=== PATIENT | male | born 1985 | race Caucasian/White ===

== ENCOUNTER 2017-12-06 16:10 | Inpatient (IN) | payer MEDICARE, MEDICAID ==
[~2017-12-06 16:10] MED LIST: RISPC50 IM
[2017-12-06] MEDS ORDERED: LORazepam 2 MG TABLET PO PRN (16:30)
[2017-12-06] MEDS ORDERED: HALOPERIDOL 5 MG TABLET PO PRN (16:30)
[2017-12-06] MEDS ORDERED: ZOLPIDEM TARTRATE 10 MG TABLET PO PRN (16:30)
[2017-12-06 16:31] VITALS: BP 115/68
[2017-12-06] MEDS ORDERED: LOPERAMIDE HCL 2 MG CAPSULE PO PRN (21:30)
[2017-12-06] MEDS ORDERED: ACETAMINOPHEN 325 MG TABLET PO PRN (21:30)
[2017-12-06] MEDS ORDERED: CloNIDine HCL 0.1 MG TABLET PO PRN (21:30)
[2017-12-06] MEDS ORDERED: MAGNESIUM HYDROXIDE SUSPENSION 30 ML UDCUP PO PRN (21:30)
[2017-12-06] MEDS ORDERED: BACITRACIN 28.4 GM OINTMENT TP PRN (21:30)
[2017-12-06] MEDS ORDERED: IBUPROFEN 600 MG TABLET PO PRN (21:30)
[2017-12-06] MEDS ORDERED: ALBUTEROL SULFATE HFA 90 MCG/PUFF 8 GM INHALER IH PRN (21:30)
[2017-12-06] MEDS ORDERED: PETROLATUM,WHITE 71 GM JELLY TP PRN (21:30)
[2017-12-06] MEDS ORDERED: MAG HYDROX/AL HYDROX/SIMETH ES 30 ML SUSPENSION UDCUP PO PRN (21:30)
[2017-12-06] MEDS ORDERED: ONDANSETRON HCL 4 MG TABLET PO PRN (21:30)
[2017-12-06] MEDS ORDERED: BENZOCAINE/MENTHOL LOZENGE MM PRN (21:30)
[2017-12-07 06:42] VITALS: BP 100/60
[2017-12-07 08:10] VITALS: BP 101/70
[2017-12-07 08:56] LABS: BASOPHILS % (AUTO) 0.7 % (0.0-2.0); HEMATOCRIT 43.7 % (41-53); HEMOGLOBIN 15.4 g/dL (13.5-17.5); LYMPHOCYTES # (AUTO) 2.5 K/uL (1.0-4.8); LYMPHOCYTES % (AUTO) 50.2 % (22.0-44.0); MEAN CORPUSCULAR HEMOGLOBIN 32.1 pg (26.0-34.0); MEAN CORPUSCULAR HGB CONC 35.3 G/dL (31.0-37.0); MEAN CORPUSCULAR VOLUME 91 fL (80-100); MONOCYTES # (AUTO) 0.7 K/uL (0.1-1.0); NEUTROPHILS # (AUTO) 1.7 K/uL (1.8-7.7); NEUTROPHILS % (AUTO) 33.1 % (40.0-70.0); PLATELET COUNT (AUTO) 275 K/uL (150-450); RED CELL DISTRIBUTION WIDTH 12.5 % (11.5-14.5)
[2017-12-07] MEDS: DOCUSATE SODIUM 100 MG CAPSULE PO SCH (09:07)
[2017-12-07] MEDS: OMEPRAZOLE 20 MG CAPSULE PO SCH (09:07)
[2017-12-07 09:11] LABS: ALANINE AMINOTRANSFERASE 33 U/L (12-78); ALBUMIN 3.7 g/dL (3.4-5.0); ALKALINE PHOSPHATASE 80 U/L (46-116); ANION GAP 5 mmol/L (8-16); ASPARTATE AMINOTRANSFERASE 18 U/L (15-37); BILIRUBIN,TOTAL 0.7 mg/dL (0.1-1.0); CALCIUM, TOTAL 8.9 mg/dL (8.8-10.5); CARBON DIOXIDE 30 mmol/L (22-29); CHLORIDE 105 mmol/L (98-107); CHOL/HDL RATIO 2.8 (4.2-7.3); CHOLESTEROL 111 mg/dL (131-200); CREATININE 0.99 mg/dL (0.60-1.30); FREE T4 (FREE THYROXINE) 1.01 ng/dL (0.76-1.46); GLOMERULAR FILTR. RATE CALC > 60 mL/min (>60); GLUCOSE,RANDOM 87 mg/dL (70-110); HDL CHOLESTEROL 40 mg/dL (40-60); LDL CHOL (CALC.) 63 mg/dL (0-130); SODIUM SERUM 140 mmol/L (136-145); THYROID STIMULATING HORMONE 1.43 uIU/mL (0.36-3.74); TOTAL PROTEIN, SERUM 6.6 g/dL (6.4-8.2); TRIGLYCERIDES 38 mg/dL (15-150); UREA NITROGEN, BLOOD 12 mg/dL (7-18)
[2017-12-07 16:17] VITALS: BP 106/62
[2017-12-08 01:38] VITALS: BP 103/64
[2017-12-08 08:00] VITALS: BP 123/69
[2017-12-08] MEDS: OMEPRAZOLE 20 MG CAPSULE PO SCH (08:52)
[2017-12-08] MEDS: DOCUSATE SODIUM 100 MG CAPSULE PO SCH (08:52)
[2017-12-08 16:10] VITALS: BP 114/71
[2017-12-08] MEDS: BENZTROPINE MESYLATE 1 MG TABLET PO SCH (16:34)
[2017-12-08] MEDS: HALOPERIDOL 10 MG TABLET PO SCH (20:46)
[2017-12-09 06:39] VITALS: BP 106/62
[2017-12-09 08:24] VITALS: BP 112/62
[2017-12-09] MEDS: OMEPRAZOLE 20 MG CAPSULE PO SCH (08:46)
[2017-12-09] MEDS: DOCUSATE SODIUM 100 MG CAPSULE PO SCH (08:46)
[2017-12-09] MEDS: BENZTROPINE MESYLATE 1 MG TABLET PO SCH ×2 (08:46→16:31)
[2017-12-09 16:09] VITALS: BP 105/63
[2017-12-09] MEDS: HALOPERIDOL 10 MG TABLET PO SCH (20:35)
[2017-12-10 06:31] VITALS: BP 102/60
[2017-12-10] MEDS: BENZTROPINE MESYLATE 1 MG TABLET PO SCH (08:02)
[2017-12-10] MEDS: DOCUSATE SODIUM 100 MG CAPSULE PO SCH (08:02)
[2017-12-10] MEDS: OMEPRAZOLE 20 MG CAPSULE PO SCH (08:02)
[2017-12-10 08:48] VITALS: BP 101/63
[2017-12-10] MEDS ORDERED: BENZ1TAB10 PO (09:57)
[2017-12-10] MEDS ORDERED: HALO10 PO (09:58)
[2017-12-10] MEDS ORDERED: DSSL PO (10:11)
[2017-12-10] MEDS ORDERED: OMEP10SU2 PO (10:11)
== END 2017-12-10 11:20 | disposition home or self-care (01) | DRG 885 ==
LOC: B2S 16:26 → B2X 22:25
PROVIDERS: ADMIT Psychiatry & Neurology Psychiatry; ATTEND Psychiatry & Neurology Psychiatry
DX: F20.0 Paranoid schizophrenia (principal); F12.90 Cannabis use, unspecified, uncomplicated; E83.51 Hypocalcemia; G47.00 Insomnia, unspecified; K59.00 Constipation, unspecified; Z72.89 Other problems related to lifestyle; Z71.51 Drug abuse counseling and surveillance of drug abuser; Z71.41 Alcohol abuse counseling and surveillance of alcoholic; Z79.899 Other long term (current) drug therapy; Z82.62 Family history of osteoporosis; Z82.61 Family history of arthritis
CPT/HCPCS: 82306; 83036; 84439; 84443

== ENCOUNTER 2019-08-28 10:38 | Emergency (ER) | payer MEDICARE, OTHER ==
[~2019-08-28] VITALS: Ht 170.2 cm; Wt 59.1 kg
[~2019-08-28 10:38] MED LIST changes: +BENZ1TAB10 PO; +DSSL PO; +HALO10 PO; +OMEP10SU2 PO; -RISPC50 IM
[2019-08-28] MEDS ORDERED: RISP.5 PO (10:44)
[2019-08-28] MEDS ORDERED: BUPR75 PO (10:44)
[2019-08-28 11:16] LABS: BASOPHILS % (AUTO) 0.7 % (0.0-2.0); EOSINOPHILS % (AUTO) 1.4 % (1.0-6.0); HEMATOCRIT 44.1 % (41-53); HEMOGLOBIN 15.3 g/dL (13.5-17.5); LYMPHOCYTES % (AUTO) 17.7 % (22.0-44.0); MEAN CORPUSCULAR HEMOGLOBIN 32.3 pg (26.0-34.0); MEAN CORPUSCULAR HGB CONC 34.7 G/dL (31.0-37.0); MEAN CORPUSCULAR VOLUME 93 fL (80-100); MONOCYTES # (AUTO) 0.4 K/uL (0.1-1.0); MONOCYTES % (AUTO) 7.3 % (2.0-9.0); NEUTROPHILS # (AUTO) 4.3 K/uL (1.8-7.7); NEUTROPHILS % (AUTO) 72.9 % (40.0-70.0); PLATELET COUNT (AUTO) 308 K/uL (150-450); RED BLOOD CELL COUNT(AUTO) 4.75 MIL/uL (4.50-5.90); RED CELL DISTRIBUTION WIDTH 12.8 % (11.5-14.5)
[2019-08-28 11:25] LABS: ANION GAP 9 mmol/L (8-16); CALCIUM, TOTAL 9.4 mg/dL (8.8-10.5); CARBON DIOXIDE 29 mmol/L (22-29); CHLORIDE 104 mmol/L (98-107); CREATININE 0.98 mg/dL (0.60-1.30); GLOMERULAR FILTR. RATE CALC > 60 mL/min (>60); GLUCOSE,RANDOM 77 mg/dL (70-110); POTASSIUM 4.1 mmol/L (3.5-5.1); SODIUM SERUM 142 mmol/L (136-145); UREA NITROGEN, BLOOD 5 mg/dL (7-18)
[2019-08-28 11:30] LABS: ALANINE AMINOTRANSFERASE 41 U/L (12-78); ALBUMIN 4.2 g/dL (3.4-5.0); ALKALINE PHOSPHATASE 87 U/L (46-116); ASPARTATE AMINOTRANSFERASE 24 U/L (15-37); BILIRUBIN,TOTAL 0.7 mg/dL (0.1-1.0); TOTAL PROTEIN, SERUM 7.5 g/dL (6.4-8.2)
[2019-08-28 11:50] LABS: APPEARANCE,URINE CLEAR (CLEAR); BILIRUBIN,URINE NEGATIVE (NEGATIVE); GLUCOSE, URINE (UA) NEGATIVE (NEGATIVE); KETONES,URINE NEGATIVE (NEGATIVE); LEUKOCYTE ESTERASE ,URINE NEGATIVE (NEGATIVE); NITRATE,URINE NEGATIVE (NEGATIVE); OCCULT BLOOD,URINE NEGATIVE (NEGATIVE); PROTEIN,URINE NEGATIVE (NEGATIVE); UROBILINOGEN,URINE 0.2 mg/dL (<=1.0)
[2019-08-28 11:56] LABS: AMPHET/METH SCREEN,URINE NEGATIVE (NEGATIVE); BARBITURATE SCREEN, URINE NEGATIVE (NEGATIVE); BENZODIAZEPINES SCREEN,URINE NEGATIVE (NEGATIVE); CANNABINOID SCREEN,URINE NEGATIVE (NEGATIVE); COCAINE SCREEN,URINE NEGATIVE (NEGATIVE); METHADONE SCREEN, URINE NEGATIVE (NEGATIVE); OPIATE SCREEN,URINE NEGATIVE (NEGATIVE)
[2019-08-28 12:13] LABS: PHENCYCLIDINE SCREEN,URINE NEGATIVE (NEGATIVE)
[2019-08-28] MEDS ORDERED: LORazepam 2 MG/ML VIAL IM ONE (12:15)
[2019-08-28] MEDS ORDERED: HALOPERIDOL LACTATE 5 MG/ML VIAL IM ONE (12:15)
[2019-08-28 14:40] VITALS: BP 128/70
== END 2019-08-28 14:44 | disposition home or self-care (01) ==
LOC: EMS 10:43
DX: R44.0 Auditory hallucinations (principal); M54.5 Low back pain; F17.210 Nicotine dependence, cigarettes, uncomplicated
CPT/HCPCS: 36415; 80053; 80307; 81003; 85025; 96372; 99284; G0480; J1630; J2060

== ENCOUNTER 2019-08-28 16:27 | Inpatient (IN) | payer MEDICARE, MEDICAID ==
[~2019-08-28] VITALS: Ht 170.2 cm; Wt 60.8 kg
[~2019-08-28 16:27] MED LIST changes: +BUPR75 PO; +RISP.5 PO
[2019-08-28] MEDS ORDERED: ZOLPIDEM TARTRATE 10 MG TABLET PO PRN (17:15)
[2019-08-28] MEDS ORDERED: LORazepam 2 MG TABLET PO PRN (17:15)
[2019-08-28] MEDS ORDERED: INFLUENZA VIRUS VACCINE QVS 2019-20 (3YR+)/PF 60 MCG/0.5 ML SYRINGE IM ONE (18:30)
[2019-08-28 19:18] VITALS: BP 112/68
[2019-08-29 05:01] VITALS: BP 121/72
[2019-08-29 08:36] LABS: CHOL/HDL RATIO 2.8 (4.2-7.3)
[2019-08-29 09:02] VITALS: BP 102/61
[2019-08-29 16:09] VITALS: BP 121/63
[2019-08-29] MEDS: BENZTROPINE MESYLATE 1 MG TABLET PO SCH (16:31)
[2019-08-29] MEDS: HALOPERIDOL 10 MG TABLET PO SCH (20:39)
[2019-08-29] MEDS ORDERED: ACETAMINOPHEN 325 MG TABLET PO PRN (23:30)
[2019-08-29] MEDS ORDERED: ONDANSETRON HCL 4 MG TABLET PO PRN (23:30)
[2019-08-29] MEDS ORDERED: LOPERAMIDE HCL 2 MG CAPSULE PO PRN (23:30)
[2019-08-29] MEDS ORDERED: IBUPROFEN 600 MG TABLET PO PRN (23:30)
[2019-08-29] MEDS ORDERED: CloNIDine HCL 0.1 MG TABLET PO PRN (23:30)
[2019-08-29] MEDS ORDERED: BENZOCAINE/MENTHOL LOZENGE MM PRN (23:30)
[2019-08-29] MEDS ORDERED: MAG HYDROX/AL HYDROX/SIMETH ES 30 ML SUSPENSION UDCUP PO PRN (23:30)
[2019-08-29] MEDS ORDERED: BACITRACIN 28.4 GM OINTMENT TP PRN (23:30)
[2019-08-29] MEDS ORDERED: ALBUTEROL SULFATE HFA 90 MCG/PUFF 8 GM INHALER IH PRN (23:30)
[2019-08-29] MEDS ORDERED: MAGNESIUM HYDROXIDE SUSPENSION 30 ML UDCUP PO PRN (23:30)
[2019-08-29] MEDS ORDERED: PETROLATUM,WHITE 28 GM JELLY TP PRN (23:30)
[2019-08-30 05:14] VITALS: BP 107/68
[2019-08-30 08:08] VITALS: BP 159/80
[2019-08-30] MEDS: BuPROPion HCL XL 150 MG ER TABLET PO SCH (08:26)
[2019-08-30] MEDS: DOCUSATE SODIUM 100 MG CAPSULE PO SCH (08:26)
[2019-08-30] MEDS: BENZTROPINE MESYLATE 1 MG TABLET PO SCH ×2 (08:26→16:35)
[2019-08-30] MEDS: OMEPRAZOLE 20 MG CAPSULE PO SCH (08:30)
[2019-08-30 08:36] VITALS: BP 109/58
[2019-08-30 16:08] VITALS: BP 111/60
[2019-08-30] MEDS: HALOPERIDOL 10 MG TABLET PO SCH (20:33)
[2019-08-31 06:08] VITALS: BP 93/52
[2019-08-31 08:29] VITALS: BP 111/60
[2019-08-31] MEDS: BENZTROPINE MESYLATE 1 MG TABLET PO SCH ×2 (08:36→17:18)
[2019-08-31] MEDS: BuPROPion HCL XL 150 MG ER TABLET PO SCH (08:36)
[2019-08-31] MEDS: OMEPRAZOLE 20 MG CAPSULE PO SCH (08:36)
[2019-08-31] MEDS: DOCUSATE SODIUM 100 MG CAPSULE PO SCH (08:36)
[2019-08-31 16:08] VITALS: BP 111/69
[2019-08-31] MEDS: HALOPERIDOL 10 MG TABLET PO SCH (22:21)
[2019-09-01 00:23] VITALS: BP 100/48
[2019-09-01] MEDS: OMEPRAZOLE 20 MG CAPSULE PO SCH (08:23)
[2019-09-01] MEDS: BuPROPion HCL XL 150 MG ER TABLET PO SCH (08:23)
[2019-09-01] MEDS: DOCUSATE SODIUM 100 MG CAPSULE PO SCH (08:23)
[2019-09-01] MEDS: BENZTROPINE MESYLATE 1 MG TABLET PO SCH ×2 (08:23→16:30)
[2019-09-01 08:38] VITALS: BP 100/55
[2019-09-01 17:07] VITALS: BP 94/58
[2019-09-01] MEDS: HALOPERIDOL 10 MG TABLET PO SCH (20:19)
[2019-09-02 00:26] VITALS: BP 102/62
[2019-09-02 08:46] VITALS: BP 114/64
[2019-09-02] MEDS: DOCUSATE SODIUM 100 MG CAPSULE PO SCH (10:24)
[2019-09-02] MEDS: BuPROPion HCL XL 150 MG ER TABLET PO SCH (10:24)
[2019-09-02] MEDS: BENZTROPINE MESYLATE 1 MG TABLET PO SCH ×2 (10:24→17:24)
[2019-09-02] MEDS: OMEPRAZOLE 20 MG CAPSULE PO SCH (10:24)
[2019-09-02 16:00] VITALS: BP 11/76
[2019-09-02] MEDS ORDERED: GuaiFENesin [SUGAR-FREE] 200 MG/10 ML SOLUTION UDCUP PO PRN (20:30)
[2019-09-02] MEDS: HALOPERIDOL 10 MG TABLET PO SCH (20:32)
[2019-09-03 06:48] VITALS: BP 111/72
[2019-09-03 08:15] VITALS: BP 112/60
[2019-09-03] MEDS: OMEPRAZOLE 20 MG CAPSULE PO SCH (08:37)
[2019-09-03] MEDS: BENZTROPINE MESYLATE 1 MG TABLET PO SCH (08:37)
[2019-09-03] MEDS: DOCUSATE SODIUM 100 MG CAPSULE PO SCH (08:37)
[2019-09-03] MEDS: BuPROPion HCL XL 150 MG ER TABLET PO SCH (08:37)
[2019-09-03] MEDS ORDERED: DOCU-275 PO (08:41)
[2019-09-03] MEDS ORDERED: HALO10 PO (08:41)
[2019-09-03] MEDS ORDERED: BUPR-93 PO (08:41)
[2019-09-03] MEDS ORDERED: OMEP20 PO (08:41)
[2019-09-04] MEDS ORDERED: RisperiDONE MICROSPHERES 50 MG/2 ML SYRINGE IM SCH (09:00)
== END 2019-09-03 12:15 | disposition home or self-care (01) | DRG 885 ==
LOC: B2X 17:07
PROVIDERS: ADMIT Psychiatry & Neurology Psychiatry; ATTEND Psychiatry & Neurology Psychiatry
DX: F25.9 Schizoaffective disorder, unspecified (principal); K59.00 Constipation, unspecified; G47.00 Insomnia, unspecified; F12.90 Cannabis use, unspecified, uncomplicated
CPT/HCPCS: G0480; J2794

== ENCOUNTER 2019-10-29 15:21 | Inpatient (IN) | payer MEDICARE, MEDICAID, SELFPAY ==
[~2019-10-29] VITALS: Ht 170.2 cm; Wt 59.0 kg
[~2019-10-29 15:21] MED LIST changes: +BUPR-93 PO; -BUPR75 PO; +DOCU-275 PO; -DSSL PO; -OMEP10SU2 PO; +OMEP20 PO; -RISP.5 PO
[2019-10-29] MEDS ORDERED: LORazepam 2 MG TABLET PO PRN (16:00)
[2019-10-29] MEDS ORDERED: HALOPERIDOL 5 MG TABLET PO PRN (16:00)
[2019-10-29] MEDS ORDERED: ZOLPIDEM TARTRATE 10 MG TABLET PO PRN (16:00)
[2019-10-29 16:48] VITALS: BP 115/60
[2019-10-29] MEDS ORDERED: RISPC50 IM (17:17)
[2019-10-29 17:19] VITALS: BP 116/71
[2019-10-30 04:39] VITALS: BP 114/65
[2019-10-30 07:47] LABS: BASOPHILS % (AUTO) 1.1 % (0.0-2.0); EOSINOPHILS % (AUTO) 2.3 % (1.0-6.0); HEMATOCRIT 42.9 % (41-53); HEMOGLOBIN 15.1 g/dL (13.5-17.5); LYMPHOCYTES # (AUTO) 1.6 K/uL (1.0-4.8); MEAN CORPUSCULAR HEMOGLOBIN 32.5 pg (26.0-34.0); MEAN CORPUSCULAR HGB CONC 35.2 G/dL (31.0-37.0); MEAN CORPUSCULAR VOLUME 92 fL (80-100); MONOCYTES # (AUTO) 0.3 K/uL (0.1-1.0); MONOCYTES % (AUTO) 8.9 % (2.0-9.0); NEUTROPHILS # (AUTO) 1.6 K/uL (1.8-7.7); NEUTROPHILS % (AUTO) 43.7 % (40.0-70.0); PLATELET COUNT (AUTO) 293 K/uL (150-450); RED BLOOD CELL COUNT(AUTO) 4.65 MIL/uL (4.50-5.90); RED CELL DISTRIBUTION WIDTH 12.4 % (11.5-14.5)
[2019-10-30 08:09] LABS: ALANINE AMINOTRANSFERASE 19 U/L (12-78); ALBUMIN 3.8 g/dL (3.4-5.0); ALKALINE PHOSPHATASE 76 U/L (46-116); ANION GAP 7 mmol/L (8-16); ASPARTATE AMINOTRANSFERASE 13 U/L (15-37); CALCIUM, TOTAL 8.7 mg/dL (8.8-10.5); CARBON DIOXIDE 30 mmol/L (22-29); CHLORIDE 105 mmol/L (98-107); CHOL/HDL RATIO 2.5 (4.2-7.3); CHOLESTEROL 101 mg/dL (131-200); CREATININE 0.97 mg/dL (0.60-1.30); GLOMERULAR FILTR. RATE CALC > 60 mL/min (>60); GLUCOSE,RANDOM 84 mg/dL (70-110); HDL CHOLESTEROL 40 mg/dL (40-60); LDL CHOL (CALC.) 55 mg/dL (0-130); POTASSIUM 3.9 mmol/L (3.5-5.1); SODIUM SERUM 142 mmol/L (136-145); TRIGLYCERIDES 29 mg/dL (15-150); UREA NITROGEN, BLOOD 8 mg/dL (7-18)
[2019-10-30 08:41] VITALS: BP 104/60
[2019-10-30] MEDS ORDERED: OMEPRAZOLE 20 MG CAPSULE PO PRN (09:00)
[2019-10-30] MEDS ORDERED: ACETAMINOPHEN 325 MG TABLET PO PRN (09:00)
[2019-10-30] MEDS ORDERED: DOCUSATE SODIUM 100 MG CAPSULE PO PRN (09:00)
[2019-10-30] MEDS ORDERED: PETROLATUM,WHITE 28 GM JELLY TP PRN (09:00)
[2019-10-30] MEDS ORDERED: CloNIDine HCL 0.1 MG TABLET PO PRN (09:00)
[2019-10-30] MEDS ORDERED: BACITRACIN 28.4 GM OINTMENT TP PRN (09:00)
[2019-10-30] MEDS ORDERED: ALBUTEROL SULFATE HFA 90 MCG/PUFF 8 GM INHALER IH PRN (09:00)
[2019-10-30] MEDS ORDERED: MAG HYDROX/AL HYDROX/SIMETH ES 30 ML SUSPENSION UDCUP PO PRN (09:00)
[2019-10-30] MEDS ORDERED: BENZOCAINE/MENTHOL LOZENGE MM PRN (09:00)
[2019-10-30] MEDS ORDERED: MAGNESIUM HYDROXIDE SUSPENSION 30 ML UDCUP PO PRN (09:00)
[2019-10-30] MEDS ORDERED: ONDANSETRON HCL 4 MG TABLET PO PRN (09:00)
[2019-10-30] MEDS ORDERED: IBUPROFEN 600 MG TABLET PO PRN (09:00)
[2019-10-30] MEDS ORDERED: LOPERAMIDE HCL 2 MG CAPSULE PO PRN (09:00)
[2019-10-30 16:26] VITALS: BP 108/64
[2019-10-31 00:07] VITALS: BP 110/70
[2019-10-31 08:26] VITALS: BP 106/63
[2019-10-31] MEDS: BuPROPion HCL XL 150 MG ER TABLET PO SCH (08:30)
[2019-10-31] MEDS ORDERED: RisperiDONE MICROSPHERES 50 MG/2 ML SYRINGE IM SCH (09:00)
[2019-10-31 16:08] VITALS: BP 101/63
[2019-11-01 00:07] VITALS: BP 100/72
[2019-11-01 08:17] VITALS: BP 113/65
[2019-11-01] MEDS: BuPROPion HCL XL 150 MG ER TABLET PO SCH (08:28)
[2019-11-01 16:43] VITALS: BP 102/63
[2019-11-02 00:34] VITALS: BP 102/70
[2019-11-02 08:09] VITALS: BP 105/62
[2019-11-02] MEDS: BuPROPion HCL XL 150 MG ER TABLET PO SCH (08:15)
== END 2019-11-02 11:20 | disposition home or self-care (01) | DRG 885 ==
LOC: B2X 16:30 → UNDOADMIN 16:39 → UNDODISIN 11-02 11:20
PROVIDERS: ADMIT Psychiatry & Neurology Psychiatry; ATTEND Psychiatry & Neurology Psychiatry
DX: F20.0 Paranoid schizophrenia (principal); F41.9 Anxiety disorder, unspecified; G47.00 Insomnia, unspecified; K59.00 Constipation, unspecified; F12.90 Cannabis use, unspecified, uncomplicated; Z72.89 Other problems related to lifestyle; Z79.899 Other long term (current) drug therapy; Z79.891 Long term (current) use of opiate analgesic; Z79.2 Long term (current) use of antibiotics
CPT/HCPCS: 84439; 84443; J2794

== ENCOUNTER 2019-12-19 13:11 | Inpatient (IN) | payer MEDICARE, MEDICAID ==
[~2019-12-19] VITALS: Ht 170.2 cm; Wt 57.3 kg
[~2019-12-19 13:11] MED LIST changes: -BENZ1TAB10 PO; -DOCU-275 PO; -HALO10 PO; -OMEP20 PO; +RISPC50 IM
[2019-12-19] MEDS ORDERED: ZOLPIDEM TARTRATE 10 MG TABLET PO PRN (13:30)
[2019-12-19 13:35] VITALS: BP 120/78
[2019-12-19] MEDS ORDERED: BENZ1TAB10 PO (14:40)
[2019-12-19 16:39] VITALS: BP 113/69
[2019-12-19] MEDS ORDERED: RisperiDONE MICROSPHERES 50 MG/2 ML SYRINGE IM SCH (21:00)
[2019-12-20 05:39] VITALS: BP 110/71
[2019-12-20 07:40] LABS: BASOPHILS % (AUTO) 0.8 % (0.0-2.0); EOSINOPHILS % (AUTO) 3.9 % (1.0-6.0); HEMATOCRIT 41.2 % (41-53); HEMOGLOBIN 14.6 g/dL (13.5-17.5); LYMPHOCYTES # (AUTO) 1.2 K/uL (1.0-4.8); LYMPHOCYTES % (AUTO) 31.6 % (22.0-44.0); MEAN CORPUSCULAR HEMOGLOBIN 32.6 pg (26.0-34.0); MEAN CORPUSCULAR HGB CONC 35.4 G/dL (31.0-37.0); MEAN CORPUSCULAR VOLUME 92 fL (80-100); MONOCYTES # (AUTO) 0.5 K/uL (0.1-1.0); NEUTROPHILS % (AUTO) 51.7 % (40.0-70.0); PLATELET COUNT (AUTO) 280 K/uL (150-450); RED BLOOD CELL COUNT(AUTO) 4.48 MIL/uL (4.50-5.90); RED CELL DISTRIBUTION WIDTH 12.7 % (11.5-14.5)
[2019-12-20 08:10] LABS: ALANINE AMINOTRANSFERASE 36 U/L (12-78); ALBUMIN 3.6 g/dL (3.4-5.0); ALKALINE PHOSPHATASE 72 U/L (46-116); ANION GAP 6 mmol/L (8-16); ASPARTATE AMINOTRANSFERASE 29 U/L (15-37); BILIRUBIN,TOTAL 0.9 mg/dL (0.1-1.0); CARBON DIOXIDE 30 mmol/L (22-29); CHLORIDE 102 mmol/L (98-107); CHOL/HDL RATIO 2.3 (4.2-7.3); CHOLESTEROL 105 mg/dL (131-200); CREATININE 0.93 mg/dL (0.60-1.30); FREE T4 (FREE THYROXINE) 1.45 ng/dL (0.76-1.46); GLOMERULAR FILTR. RATE CALC > 60 mL/min (>60); GLUCOSE,RANDOM 88 mg/dL (70-110); HDL CHOLESTEROL 45 mg/dL (40-60); LDL CHOL (CALC.) 53 mg/dL (0-130); POTASSIUM 3.4 mmol/L (3.5-5.1); SODIUM SERUM 138 mmol/L (136-145); THYROID STIMULATING HORMONE 1.36 uIU/mL (0.36-3.74); TOTAL PROTEIN, SERUM 7.4 g/dL (6.4-8.2); TRIGLYCERIDES 33 mg/dL (15-150); UREA NITROGEN, BLOOD 8 mg/dL (7-18)
[2019-12-20 08:24] VITALS: BP 121/72
[2019-12-20 16:34] VITALS: BP 103/61
[2019-12-20] MEDS ORDERED: POTASSIUM CHLORIDE 20 MEQ ER TABLET PO ONE (17:15)
[2019-12-21 07:14] VITALS: BP 107/66
[2019-12-21 08:54] VITALS: BP 105/66
[2019-12-21] MEDS ORDERED: HALOPERIDOL LACTATE 5 MG/ML VIAL ONE (10:23)
[2019-12-21] MEDS ORDERED: DiphenhydrAMINE HCL 50 MG/ML VIAL ONE (10:23)
[2019-12-21] MEDS ORDERED: LORazepam 2 MG/ML VIAL ONE (10:23)
[2019-12-21] MEDS ORDERED: DiphenhydrAMINE HCL 50 MG/ML VIAL IM ONE (10:30)
[2019-12-21] MEDS ORDERED: LORazepam 2 MG/ML VIAL IM ONE (10:30)
[2019-12-21] MEDS ORDERED: HALOPERIDOL LACTATE 5 MG/ML VIAL IM ONE (10:30)
[2019-12-21 16:04] VITALS: BP 110/63
[2019-12-22 04:15] VITALS: BP 118/70
[2019-12-22 08:07] VITALS: BP 109/59
[2019-12-22] MEDS: LORazepam 2 MG TABLET PO PRN (14:12)
[2019-12-22 16:03] VITALS: BP 103/70
[2019-12-23 01:44] VITALS: BP 114/71
[2019-12-23 08:16] VITALS: BP 127/71
[2019-12-23] MEDS: HALOPERIDOL 5 MG TABLET PO PRN (15:57)
[2019-12-23] MEDS: LORazepam 2 MG TABLET PO PRN (15:58)
[2019-12-23 16:07] VITALS: BP 119/71
[2019-12-24 01:51] VITALS: BP 126/76
[2019-12-24 08:02] VITALS: BP 106/52
[2019-12-24] MEDS ORDERED: IBUPROFEN 600 MG TABLET PO PRN (09:30)
[2019-12-24] MEDS: LORazepam 2 MG TABLET PO PRN ×2 (09:49→16:08)
[2019-12-24] MEDS: HALOPERIDOL 5 MG TABLET PO PRN ×2 (09:49→16:08)
[2019-12-24 16:04] VITALS: BP 116/70
[2019-12-25 06:25] VITALS: BP 110/62
[2019-12-25 08:05] VITALS: BP 110/72
[2019-12-25 16:02] VITALS: BP 114/68
[2019-12-25] MEDS: HALOPERIDOL 5 MG TABLET PO PRN (16:09)
[2019-12-25] MEDS: LORazepam 2 MG TABLET PO PRN (16:09)
[2019-12-26 02:18] VITALS: BP 109/65
[2019-12-26 08:07] VITALS: BP 117/73
[2019-12-26] MEDS ORDERED: MAG HYDROX/AL HYDROX/SIMETH ES 30 ML SUSPENSION UDCUP PO PRN (08:15)
[2019-12-26] MEDS ORDERED: ONDANSETRON HCL 4 MG TABLET PO PRN (08:15)
[2019-12-26] MEDS ORDERED: BENZOCAINE/MENTHOL LOZENGE MM PRN (08:15)
[2019-12-26] MEDS ORDERED: PETROLATUM,WHITE 28 GM JELLY TP PRN (08:15)
[2019-12-26] MEDS ORDERED: MAGNESIUM HYDROXIDE SUSPENSION 30 ML UDCUP PO PRN (08:15)
[2019-12-26] MEDS ORDERED: ALBUTEROL SULFATE HFA 90 MCG/PUFF 8 GM INHALER IH PRN (08:15)
[2019-12-26] MEDS ORDERED: ACETAMINOPHEN 325 MG TABLET PO PRN (08:15)
[2019-12-26] MEDS ORDERED: LOPERAMIDE HCL 2 MG CAPSULE PO PRN (08:15)
[2019-12-26] MEDS ORDERED: BACITRACIN 28.4 GM OINTMENT TP PRN (08:15)
[2019-12-26] MEDS ORDERED: CloNIDine HCL 0.1 MG TABLET PO PRN (08:15)
[2019-12-26 08:47] LABS: ANION GAP 4 mmol/L (8-16); CALCIUM, TOTAL 9.3 mg/dL (8.8-10.5); CARBON DIOXIDE 33 mmol/L (22-29); CHLORIDE 102 mmol/L (98-107); GLOMERULAR FILTR. RATE CALC > 60 mL/min (>60); GLUCOSE,RANDOM 95 mg/dL (70-110); POTASSIUM 4.2 mmol/L (3.5-5.1); SODIUM SERUM 139 mmol/L (136-145); UREA NITROGEN, BLOOD 10 mg/dL (7-18)
[2019-12-26] MEDS ORDERED: OMEPRAZOLE 20 MG CAPSULE PO SCH (09:00)
[2019-12-26] MEDS ORDERED: DOCUSATE SODIUM 100 MG CAPSULE PO SCH (09:00)
== END 2019-12-26 13:15 | disposition home or self-care (01) | DRG 885 ==
LOC: B2X 14:09 → B3A 12-21 10:45
PROVIDERS: ADMIT Psychiatry & Neurology Psychiatry; ATTEND Psychiatry & Neurology Psychiatry
DX: F20.0 Paranoid schizophrenia (principal); F12.90 Cannabis use, unspecified, uncomplicated; F41.9 Anxiety disorder, unspecified; G47.00 Insomnia, unspecified; K59.00 Constipation, unspecified; E87.6 Hypokalemia; F19.10 Other psychoactive substance abuse, uncomplicated; Z72.0 Tobacco use; Z79.899 Other long term (current) drug therapy; Z71.51 Drug abuse counseling and surveillance of drug abuser; Z71.6 Tobacco abuse counseling
CPT/HCPCS: 84132; 84439; 84443; J1200; J1630; J2060; J2794

== ENCOUNTER 2020-03-08 13:14 | Inpatient (IN) | payer MEDICARE, MEDICAID ==
[~2020-03-08] VITALS: Ht 170.2 cm; Wt 61.2 kg
[~2020-03-08 13:14] MED LIST changes: +BENZ1TAB10 PO; -BUPR-93 PO; +BUPR100T5 PO; +HALO10 PO; -RISPC50 IM
[2020-03-08] MEDS ORDERED: ARIP2 PO (17:17)
[2020-03-08] MEDS ORDERED: BUPR150SR PO (20:37)
[2020-03-08] MEDS ORDERED: HALOPERIDOL 5 MG TABLET PO PRN (20:45)
[2020-03-08] MEDS ORDERED: ZOLPIDEM TARTRATE 10 MG TABLET PO PRN (20:45)
[2020-03-08] MEDS ORDERED: LORazepam 2 MG TABLET PO PRN (20:45)
[2020-03-08 21:27] VITALS: BP 136/77
[2020-03-08] MEDS ORDERED: INFLUENZA VIRUS VACCINE QVS 2020-21 (6MO+)/PF 60 MCG/0.5 ML SYRINGE IM ONE (22:45)
[2020-03-08] MEDS: QUEtiapine FUMARATE 25 MG TABLET PO SCH (23:00)
[2020-03-09 07:37] LABS: BASOPHILS % (AUTO) 1.3 % (0.0-2.0); EOSINOPHILS % (AUTO) 3.2 % (1.0-6.0); HEMATOCRIT 42.9 % (41-53); HEMOGLOBIN 14.9 g/dL (13.5-17.5); LYMPHOCYTES # (AUTO) 1.5 K/uL (1.0-4.8); LYMPHOCYTES % (AUTO) 36.2 % (22.0-44.0); MEAN CORPUSCULAR HEMOGLOBIN 32.1 pg (26.0-34.0); MEAN CORPUSCULAR HGB CONC 34.6 G/dL (31.0-37.0); MEAN CORPUSCULAR VOLUME 93 fL (80-100); MONOCYTES # (AUTO) 0.4 K/uL (0.1-1.0); MONOCYTES % (AUTO) 9.2 % (2.0-9.0); NEUTROPHILS # (AUTO) 2.1 K/uL (1.8-7.7); NEUTROPHILS % (AUTO) 50.1 % (40.0-70.0); PLATELET COUNT (AUTO) 313 K/uL (150-450); RED BLOOD CELL COUNT(AUTO) 4.62 MIL/uL (4.50-5.90); RED CELL DISTRIBUTION WIDTH 12.6 % (11.5-14.5)
[2020-03-09 07:57] LABS: ALANINE AMINOTRANSFERASE 117 U/L (12-78); ALBUMIN 3.5 g/dL (3.4-5.0); ALKALINE PHOSPHATASE 54 U/L (46-116); ANION GAP 8 mmol/L (8-16); ASPARTATE AMINOTRANSFERASE 190 U/L (15-37); BILIRUBIN,TOTAL 0.7 mg/dL (0.1-1.0); CARBON DIOXIDE 27 mmol/L (22-29); CHLORIDE 107 mmol/L (98-107); CHOL/HDL RATIO 2.6 (4.2-7.3); CHOLESTEROL 99 mg/dL (131-200); CREATININE 0.81 mg/dL (0.60-1.30); FREE T4 (FREE THYROXINE) 1.07 ng/dL (0.76-1.46); GLOMERULAR FILTR. RATE CALC > 60 mL/min (>60); GLUCOSE,RANDOM 87 mg/dL (70-110); HDL CHOLESTEROL 38 mg/dL (40-60); LDL CHOL (CALC.) 51 mg/dL (0-130); POTASSIUM 3.8 mmol/L (3.5-5.1); SODIUM SERUM 142 mmol/L (136-145); THYROID STIMULATING HORMONE 0.46 uIU/mL (0.36-3.74); TOTAL PROTEIN, SERUM 6.3 g/dL (6.4-8.2); TRIGLYCERIDES 50 mg/dL (15-150); UREA NITROGEN, BLOOD 8 mg/dL (7-18)
[2020-03-09] MEDS: BENZTROPINE MESYLATE 1 MG TABLET PO SCH ×2 (08:28→16:27)
[2020-03-09] MEDS: HALOPERIDOL 5 MG TABLET PO SCH ×2 (08:29→16:27)
[2020-03-09] MEDS ORDERED: IBUPROFEN 400 MG TABLET PO PRN (08:30)
[2020-03-09] MEDS ORDERED: DOCUSATE SODIUM 100 MG CAPSULE PO PRN (08:30)
[2020-03-09] MEDS ORDERED: PETROLATUM,WHITE 28 GM JELLY TP PRN (08:30)
[2020-03-09] MEDS ORDERED: GuaiFENesin/D-METHORPHAN [SUGAR-FREE] 200-20MG/10 ML SYRUP UDCUP PO PRN (08:30)
[2020-03-09] MEDS ORDERED: NICOTINE 14 MG/24 HOUR PATCH TD PRN (08:30)
[2020-03-09] MEDS ORDERED: ACETAMINOPHEN 325 MG TABLET PO PRN (08:30)
[2020-03-09] MEDS ORDERED: MAGNESIUM HYDROXIDE SUSPENSION 30 ML UDCUP PO PRN (08:30)
[2020-03-09] MEDS ORDERED: ALBUTEROL SULFATE HFA 90 MCG/PUFF 8 GM INHALER IH PRN (08:30)
[2020-03-09] MEDS ORDERED: LOPERAMIDE HCL 2 MG CAPSULE PO PRN (08:30)
[2020-03-09] MEDS ORDERED: CloNIDine HCL 0.1 MG TABLET PO PRN (08:30)
[2020-03-09] MEDS ORDERED: MAG HYDROX/AL HYDROX/SIMETH ES 30 ML SUSPENSION UDCUP PO PRN (08:30)
[2020-03-09] MEDS ORDERED: ONDANSETRON HCL 4 MG TABLET PO PRN (08:30)
[2020-03-09 08:36] VITALS: BP 106/62
[2020-03-09 16:48] VITALS: BP 107/62
[2020-03-09] MEDS: QUEtiapine FUMARATE 25 MG TABLET PO SCH (20:33)
[2020-03-10 06:26] VITALS: BP 100/60
[2020-03-10] MEDS: HALOPERIDOL 5 MG TABLET PO SCH ×2 (08:12→17:13)
[2020-03-10] MEDS: BENZTROPINE MESYLATE 1 MG TABLET PO SCH ×2 (08:12→17:13)
[2020-03-10 08:29] VITALS: BP 117/75
[2020-03-10 16:19] VITALS: BP 105/64
[2020-03-10] MEDS: QUEtiapine FUMARATE 25 MG TABLET PO SCH (21:00)
[2020-03-11 04:31] VITALS: BP 110/64
[2020-03-11 08:26] VITALS: BP 100/60
[2020-03-11] MEDS: BENZTROPINE MESYLATE 1 MG TABLET PO SCH ×2 (08:33→16:57)
[2020-03-11] MEDS: HALOPERIDOL 5 MG TABLET PO SCH ×2 (08:35→16:57)
[2020-03-11 16:35] VITALS: BP 100/63
[2020-03-11] MEDS: QUEtiapine FUMARATE 25 MG TABLET PO SCH (20:08)
[2020-03-12 05:37] VITALS: BP 110/68
[2020-03-12 08:05] VITALS: BP 106/67
[2020-03-12] MEDS: BENZTROPINE MESYLATE 1 MG TABLET PO SCH ×2 (09:10→16:32)
[2020-03-12] MEDS: HALOPERIDOL 5 MG TABLET PO SCH ×2 (09:10→16:32)
[2020-03-12 16:17] VITALS: BP 99/61
[2020-03-12] MEDS: QUEtiapine FUMARATE 25 MG TABLET PO SCH (20:36)
[2020-03-13 00:16] VITALS: BP 101/62
[2020-03-13 08:38] VITALS: BP 100/60
[2020-03-13] MEDS: HALOPERIDOL 5 MG TABLET PO SCH ×2 (08:55→16:18)
[2020-03-13] MEDS: BENZTROPINE MESYLATE 1 MG TABLET PO SCH ×2 (08:55→16:18)
[2020-03-13 16:22] VITALS: BP 101/65
[2020-03-13] MEDS: QUEtiapine FUMARATE 25 MG TABLET PO SCH (20:43)
[2020-03-14 04:41] VITALS: BP 110/68
[2020-03-14] MEDS ORDERED: HALO5TAB23 PO (07:35)
[2020-03-14] MEDS ORDERED: QUET25TA PO (07:36)
[2020-03-14 08:09] VITALS: BP 107/56
[2020-03-14] MEDS: HALOPERIDOL 5 MG TABLET PO SCH (08:30)
[2020-03-14] MEDS: BENZTROPINE MESYLATE 1 MG TABLET PO SCH (08:30)
== END 2020-03-14 10:45 | disposition home or self-care (01) | DRG 885 ==
LOC: B2X 21:58
PROVIDERS: ADMIT Psychiatry & Neurology Psychiatry; ATTEND Psychiatry & Neurology Psychiatry
DX: F20.0 Paranoid schizophrenia (principal); D72.819 Decreased white blood cell count, unspecified; F10.10 Alcohol abuse, uncomplicated; R74.01 Elevation of levels of liver transaminase levels; F19.10 Other psychoactive substance abuse, uncomplicated; F99 Mental disorder, not otherwise specified; Z23 Encounter for immunization; Z79.899 Other long term (current) drug therapy
CPT/HCPCS: 84436; 84439; 84443; 90686

== ENCOUNTER 2020-03-08 15:38 | Emergency (ER) | payer MEDICARE, OTHER ==
[~2020-03-08] VITALS: Ht 170.2 cm; Wt 61.4 kg
[2020-03-08] MEDS ORDERED: ARIP2 PO (17:17)
[2020-03-08 17:27] LABS: COVID AG,FIA SOURCE NASOPHARYNGEAL
[2020-03-08] MEDS ORDERED: BUPR150SR PO (20:37)
[2020-03-08 21:24] VITALS: BP 113/68
== END 2020-03-08 20:02 | disposition home or self-care (01) ==
LOC: EMS 15:38
DX: F20.9 Schizophrenia, unspecified (principal); F17.210 Nicotine dependence, cigarettes, uncomplicated; Z20.828 Contact with and (suspected) exposure to other viral communicable diseases
CPT/HCPCS: 87426

== ENCOUNTER 2021-08-08 15:03 | Inpatient (IN) | payer MEDICARE, MEDICAID ==
[~2021-08-08] VITALS: Ht 170.2 cm; Wt 56.9 kg
[~2021-08-08 15:03] MED LIST changes: -BUPR100T5 PO; -HALO10 PO; +HALO5TAB23 PO; +QUET25TA PO
[2021-08-08] MEDS ORDERED: HALOPERIDOL 5 MG TABLET PO PRN (15:45)
[2021-08-08] MEDS ORDERED: LORazepam 2 MG TABLET PO PRN (15:45)
[2021-08-08] MEDS ORDERED: ZOLPIDEM TARTRATE 10 MG TABLET PO PRN (15:45)
[2021-08-08 15:51] LABS: GLUCOMETER DEV NAME(LOC) POC.BV
[2021-08-08 18:23] VITALS: BP 104/71
[2021-08-09 06:27] VITALS: BP 100/50
[2021-08-09 07:46] LABS: EOSINOPHILS % (AUTO) 3.4 % (1.0-6.0); HEMOGLOBIN 13.4 g/dL (13.5-17.5); LYMPHOCYTES # (AUTO) 1.6 K/uL (1.0-4.8); LYMPHOCYTES % (AUTO) 49.8 % (22.0-44.0); MEAN CORPUSCULAR HGB CONC 35.3 G/dL (31.0-37.0); MEAN CORPUSCULAR VOLUME 91 fL (80-100); MONOCYTES # (AUTO) 0.3 K/uL (0.1-1.0); NEUTROPHILS # (AUTO) 1.1 K/uL (1.8-7.7); NEUTROPHILS % (AUTO) 35.8 % (40.0-70.0); PLATELET COUNT (AUTO) 264 K/uL (150-450); RED BLOOD CELL COUNT(AUTO) 4.19 MIL/uL (4.50-5.90); RED CELL DISTRIBUTION WIDTH 12.8 % (11.5-14.5)
[2021-08-09 07:53] LABS: HEMOGLOBIN A1C 5.1 % (3.8-5.6)
[2021-08-09] MEDS ORDERED: ALBUTEROL SULFATE HFA 90 MCG/PUFF 8 GM INHALER IH PRN (08:00)
[2021-08-09] MEDS ORDERED: BENZOCAINE/MENTHOL LOZENGE PO PRN (08:00)
[2021-08-09] MEDS ORDERED: OMEPRAZOLE 20 MG CAPSULE PO PRN (08:00)
[2021-08-09] MEDS ORDERED: IBUPROFEN 600 MG TABLET PO PRN (08:00)
[2021-08-09] MEDS ORDERED: PETROLATUM,WHITE 28 GM JELLY TP PRN (08:00)
[2021-08-09] MEDS ORDERED: CloNIDine HCL 0.1 MG TABLET PO PRN (08:00)
[2021-08-09] MEDS ORDERED: ONDANSETRON HCL 4 MG TABLET PO PRN (08:00)
[2021-08-09] MEDS ORDERED: MAG HYDROX/AL HYDROX/SIMETH ES 30 ML SUSPENSION UDCUP PO PRN (08:00)
[2021-08-09] MEDS ORDERED: ACETAMINOPHEN 325 MG TABLET PO PRN (08:00)
[2021-08-09] MEDS ORDERED: BACITRACIN 28 GM OINTMENT TP PRN (08:00)
[2021-08-09] MEDS ORDERED: LOPERAMIDE HCL 2 MG CAPSULE PO PRN (08:00)
[2021-08-09] MEDS ORDERED: MAGNESIUM HYDROXIDE SUSPENSION 30 ML UDCUP PO PRN (08:00)
[2021-08-09] MEDS ORDERED: DOCUSATE SODIUM 100 MG CAPSULE PO PRN (08:00)
[2021-08-09 08:06] LABS: ALANINE AMINOTRANSFERASE 34 U/L (12-78); ALBUMIN 3.4 g/dL (3.4-5.0); ALKALINE PHOSPHATASE 61 U/L (46-116); ANION GAP 6 mmol/L (8-16); ASPARTATE AMINOTRANSFERASE 25 U/L (15-37); BILIRUBIN,TOTAL 0.5 mg/dL (0.1-1.0); CALCIUM, TOTAL 8.4 mg/dL (8.8-10.5); CARBON DIOXIDE 29 mmol/L (22-29); CHLORIDE 106 mmol/L (98-107); CHOL/HDL RATIO 2.1 (4.2-7.3); CHOLESTEROL 101 mg/dL (131-200); CREATININE 0.94 mg/dL (0.60-1.30); FREE T4 (FREE THYROXINE) 1.14 ng/dL (0.76-1.46); GLOMERULAR FILTR. RATE CALC > 60 mL/min (>60); GLUCOSE,RANDOM 83 mg/dL (70-110); HDL CHOLESTEROL 47 mg/dL (40-60); LDL CHOL (CALC.) 49 mg/dL (0-130); POTASSIUM 3.7 mmol/L (3.5-5.1); SODIUM SERUM 141 mmol/L (136-145); TOTAL PROTEIN, SERUM 6.6 g/dL (6.4-8.2); TRIGLYCERIDES 24 mg/dL (15-150); UREA NITROGEN, BLOOD 9 mg/dL (7-18)
[2021-08-09 08:11] VITALS: BP 102/60
[2021-08-09 16:22] VITALS: BP 101/60
[2021-08-10 09:03] VITALS: BP 115/56
[2021-08-10 16:19] VITALS: BP 104/60
[2021-08-11 08:21] VITALS: BP 100/61
[2021-08-11 16:12] VITALS: BP 101/63
[2021-08-12 06:25] VITALS: BP 101/64
[2021-08-12 09:15] VITALS: BP 108/69
[2021-08-12 16:31] VITALS: BP 103/67
[2021-08-13 07:16] VITALS: BP 105/67
[2021-08-13 09:08] VITALS: BP 105/61
[2021-08-13] MEDS ORDERED: RISPC50 IM (09:11)
[2021-08-24] MEDS ORDERED: RisperiDONE MICROSPHERES 50 MG/2 ML SYRINGE IM SCH (09:00)
== END 2021-08-13 12:45 | disposition home or self-care (01) | DRG 885 ==
LOC: B2X 16:13
PROVIDERS: ADMIT Psychiatry & Neurology Psychiatry; ATTEND Psychiatry & Neurology Psychiatry
DX: F20.0 Paranoid schizophrenia (principal); G47.00 Insomnia, unspecified; K59.00 Constipation, unspecified; Z20.822 Contact with and (suspected) exposure to COVID-19; F12.90 Cannabis use, unspecified, uncomplicated; F29 Unspecified psychosis not due to a substance or known physiological condition; Z72.89 Other problems related to lifestyle; Z71.51 Drug abuse counseling and surveillance of drug abuser
CPT/HCPCS: 80053; 80061; 83036; 84436; 84439; 85025; G0480

== ENCOUNTER → 2022-08-19 | Outpatient (CLI) | payer MEDICARE, MEDICAID, SELFPAY ==
[~2022-08-19] MED LIST changes: -BENZ1TAB10 PO; -HALO5TAB23 PO; -QUET25TA PO; +RISPC50 IM
== END | disposition home or self-care (01) ==
LOC: LABPV 09:25
PROVIDERS: ATTEND Psychiatry & Neurology Psychiatry
DX: F20.0 Paranoid schizophrenia (principal); Z79.899 Other long term (current) drug therapy
CPT/HCPCS: 80061; 82947; 83036

== ENCOUNTER 2022-12-08 10:26 | Inpatient (IN) | payer MEDICARE, MEDICAID ==
[~2022-12-08] VITALS: Ht 170.2 cm; Wt 58.1 kg
[2022-12-08] MEDS ORDERED: ZOLPIDEM TARTRATE 10 MG TABLET PO PRN (11:30)
[2022-12-08] MEDS ORDERED: PROMETHAZINE HCL 25 MG TABLET PO PRN (11:30)
[2022-12-08] MEDS ORDERED: TUBERCULIN, PURIFIED PROTEIN DERIVATIVE 5 TU/0.1 ML SYRINGE ID ONE (11:30)
[2022-12-08] MEDS ORDERED: HydrOXYzine PAMOATE 50 MG CAPSULE PO PRN (11:30)
[2022-12-08] MEDS ORDERED: MAG HYDROX/AL HYDROX/SIMETH ES 30 ML SUSPENSION UDCUP PO PRN (11:30)
[2022-12-08] MEDS ORDERED: GuaiFENesin/D-METHORPHAN [SUGAR-FREE] 200-20MG/10 ML SYRUP UDCUP PO PRN (11:30)
[2022-12-08] MEDS ORDERED: MAGNESIUM HYDROXIDE SUSPENSION 30 ML UDCUP PO PRN (11:30)
[2022-12-08] MEDS ORDERED: ACETAMINOPHEN 325 MG TABLET PO PRN (11:30)
[2022-12-08] MEDS ORDERED: LOPERAMIDE HCL 2 MG CAPSULE PO PRN (11:30)
[2022-12-08] MEDS ORDERED: OLANZapine 5 MG RAPDIS TABLET PO PRN (11:30)
[2022-12-08] MEDS ORDERED: GABAPENTIN 300 MG CAPSULE PO PRN (11:45)
[2022-12-08 13:55] VITALS: BP 109/61; PULSE 87; RESP 19; TEMP 97.8; O2SAT 98
[2022-12-08] MEDS: OLANZapine 5 MG RAPDIS TABLET PO SCH ×3 (14:43→20:51)
[2022-12-08] MEDS: THIAMINE 100 MG TABLET PO SCH (16:28)
[2022-12-08] MEDS: MELATONIN 5 MG TABLET PO SCH (20:51)
[2022-12-08 21:17] VITALS: BP 103/57; PULSE 71; RESP 18; TEMP 98.2; O2SAT 96
[2022-12-09 08:11] VITALS: BP 118/63; PULSE 98; RESP 18; TEMP 98; O2SAT 97
[2022-12-09] MEDS: OMEGA-3/DHA/EPA/FISH OIL 1,000 MG CAPSULE PO SCH (08:16)
[2022-12-09] MEDS: FOLIC ACID 1 MG TABLET PO SCH (08:16)
[2022-12-09] MEDS: THIAMINE 100 MG TABLET PO SCH ×2 (08:16→16:37)
[2022-12-09 08:23] LABS: BASOPHILS % (AUTO) 0.7 % (0.0-2.0); EOSINOPHILS % (AUTO) 3.7 % (1.0-6.0); HEMATOCRIT 47.1 % (41-53); HEMOGLOBIN 15.9 g/dL (13.5-17.5); LYMPHOCYTES # (AUTO) 1.7 K/uL (1.0-4.8); LYMPHOCYTES % (AUTO) 46.9 % (22.0-44.0); MEAN CORPUSCULAR HEMOGLOBIN 32.4 pg (26.0-34.0); MEAN CORPUSCULAR HGB CONC 33.9 G/dL (31.0-37.0); MEAN CORPUSCULAR VOLUME 96 fL (80-100); MONOCYTES # (AUTO) 0.3 K/uL (0.1-1.0); MONOCYTES % (AUTO) 9.1 % (2.0-9.0); NEUTROPHILS # (AUTO) 1.4 K/uL (1.8-7.7); NEUTROPHILS % (AUTO) 39.6 % (40.0-70.0); PLATELET COUNT (AUTO) 269 K/uL (150-450); RED BLOOD CELL COUNT(AUTO) 4.92 MIL/uL (4.50-5.90); RED CELL DISTRIBUTION WIDTH 13.2 % (11.5-14.5)
[2022-12-09] MEDS: OLANZapine 5 MG RAPDIS TABLET PO SCH ×4 (08:28→20:08)
[2022-12-09 08:49] LABS: HEMOGLOBIN A1C 4.6 % (3.8-5.6)
[2022-12-09] MEDS: NALTREXONE HCL 50 MG TABLET PO SCH (08:54)
[2022-12-09 09:06] LABS: ALANINE AMINOTRANSFERASE 34 U/L (12-78); ALBUMIN 4.1 g/dL (3.4-5.0); ALKALINE PHOSPHATASE 101 U/L (46-116); ANION GAP 5 mmol/L (8-16); ASPARTATE AMINOTRANSFERASE 27 U/L (15-37); BILIRUBIN,TOTAL 0.6 mg/dL (0.1-1.0); CALCIUM, TOTAL 9.5 mg/dL (8.8-10.5); CARBON DIOXIDE 29 mmol/L (22-29); CHLORIDE 106 mmol/L (98-107); CHOL/HDL RATIO 2.7 (4.2-7.3); CHOLESTEROL 138 mg/dL (131-200); CREATININE 0.96 mg/dL (0.60-1.30); FREE T4 (FREE THYROXINE) 0.98 ng/dL (0.76-1.46); GLOMERULAR FILTR. RATE CALC > 60 mL/min (>60); GLUCOSE,RANDOM 90 mg/dL (70-110); HDL CHOLESTEROL 52 mg/dL (40-60); LDL CHOL (CALC.) 77 mg/dL (0-130); POTASSIUM 4.1 mmol/L (3.5-5.1); SODIUM SERUM 140 mmol/L (136-145); THYROID STIMULATING HORMONE 1.21 uIU/mL (0.36-3.74); TRIGLYCERIDES 44 mg/dL (15-150)
[2022-12-09 20:05] VITALS: BP 103/58; PULSE 90; RESP 18; TEMP 98.4; O2SAT 96
[2022-12-09] MEDS: MELATONIN 5 MG TABLET PO SCH (20:08)
[2022-12-10 09:01] LABS: BASOPHILS % (AUTO) 0.8 % (0.0-2.0); EOSINOPHILS % (AUTO) 4.1 % (1.0-6.0); HEMATOCRIT 44.9 % (41-53); HEMOGLOBIN 15.5 g/dL (13.5-17.5); LYMPHOCYTES # (AUTO) 1.6 K/uL (1.0-4.8); LYMPHOCYTES % (AUTO) 43.7 % (22.0-44.0); MEAN CORPUSCULAR HEMOGLOBIN 32.6 pg (26.0-34.0); MEAN CORPUSCULAR HGB CONC 34.4 G/dL (31.0-37.0); MEAN CORPUSCULAR VOLUME 95 fL (80-100); MONOCYTES # (AUTO) 0.2 K/uL (0.1-1.0); MONOCYTES % (AUTO) 6.7 % (2.0-9.0); NEUTROPHILS # (AUTO) 1.6 K/uL (1.8-7.7); NEUTROPHILS % (AUTO) 44.7 % (40.0-70.0); PLATELET COUNT (AUTO) 256 K/uL (150-450); RED BLOOD CELL COUNT(AUTO) 4.75 MIL/uL (4.50-5.90); RED CELL DISTRIBUTION WIDTH 13.1 % (11.5-14.5)
[2022-12-10] MEDS: FOLIC ACID 1 MG TABLET PO SCH (09:20)
[2022-12-10] MEDS: OMEGA-3/DHA/EPA/FISH OIL 1,000 MG CAPSULE PO SCH (09:20)
[2022-12-10] MEDS: OLANZapine 5 MG RAPDIS TABLET PO SCH ×4 (09:20→20:57)
[2022-12-10] MEDS: THIAMINE 100 MG TABLET PO SCH ×2 (09:20→16:41)
[2022-12-10] MEDS: NALTREXONE HCL 50 MG TABLET PO SCH (09:20)
[2022-12-10 12:07] VITALS: BP 101/66; PULSE 84; RESP 18; TEMP 97.6; O2SAT 97
[2022-12-10] MEDS ORDERED: CloZAPine 25 MG TABLET PO SCH (13:00)
[2022-12-10 20:04] VITALS: BP 115/69; PULSE 91; RESP 18; TEMP 97.9; O2SAT 97
[2022-12-10] MEDS: MELATONIN 5 MG TABLET PO SCH (20:55)
[2022-12-11 08:04] VITALS: BP 109/63; PULSE 90; RESP 16; TEMP 98.1; O2SAT 96
[2022-12-11] MEDS: THIAMINE 100 MG TABLET PO SCH ×2 (08:18→16:48)
[2022-12-11] MEDS: OMEGA-3/DHA/EPA/FISH OIL 1,000 MG CAPSULE PO SCH (08:18)
[2022-12-11] MEDS: FOLIC ACID 1 MG TABLET PO SCH (08:18)
[2022-12-11] MEDS: NALTREXONE HCL 50 MG TABLET PO SCH (08:18)
[2022-12-11] MEDS: OLANZapine 5 MG RAPDIS TABLET PO SCH ×2 (08:19→12:34)
[2022-12-11] MEDS ORDERED: CloZAPine 25 MG TABLET PO SCH ×2 (09:00→21:00)
[2022-12-11] MEDS ORDERED: QUEtiapine FUMARATE 100 MG TABLET PO PRN (14:30)
[2022-12-11] MEDS: DIVALPROEX SODIUM 250 MG ER TABLET PO SCH ×2 (16:48→20:01)
[2022-12-11] MEDS: QUEtiapine FUMARATE 25 MG TABLET PO SCH (16:48)
[2022-12-11] MEDS: QUEtiapine FUMARATE 100 MG TABLET PO SCH (20:01)
[2022-12-11] MEDS: MELATONIN 5 MG TABLET PO SCH (20:02)
[2022-12-11 20:07] VITALS: BP 108/64; PULSE 97; RESP 18; TEMP 98.4; O2SAT 96
[2022-12-12 08:05] VITALS: BP 113/77; PULSE 90; RESP 16; TEMP 98.2; O2SAT 98
[2022-12-12] MEDS: THIAMINE 100 MG TABLET PO SCH ×2 (08:22→16:21)
[2022-12-12] MEDS: NALTREXONE HCL 50 MG TABLET PO SCH (08:22)
[2022-12-12] MEDS: FOLIC ACID 1 MG TABLET PO SCH (08:22)
[2022-12-12] MEDS: QUEtiapine FUMARATE 25 MG TABLET PO SCH ×3 (08:22→16:21)
[2022-12-12] MEDS: DIVALPROEX SODIUM 250 MG ER TABLET PO SCH ×4 (08:22→20:25)
[2022-12-12] MEDS: OMEGA-3/DHA/EPA/FISH OIL 1,000 MG CAPSULE PO SCH (08:22)
[2022-12-12] MEDS ORDERED: CloZAPine 25 MG TABLET PO SCH ×2 (09:00→21:00)
[2022-12-12 20:19] VITALS: BP 119/80; PULSE 100; RESP 18; TEMP 97.7; O2SAT 98
[2022-12-12] MEDS: QUEtiapine FUMARATE 100 MG TABLET PO SCH (20:25)
[2022-12-12] MEDS: MELATONIN 5 MG TABLET PO SCH (20:25)
[2022-12-13 08:22] VITALS: BP 107/69; PULSE 69; RESP 16; TEMP 98.4; O2SAT 97
[2022-12-13] MEDS: CloZAPine 25 MG TABLET PO SCH ×2 (08:33→20:30)
[2022-12-13] MEDS: DIVALPROEX SODIUM 250 MG ER TABLET PO SCH ×4 (08:33→20:30)
[2022-12-13] MEDS: THIAMINE 100 MG TABLET PO SCH ×2 (08:33→16:28)
[2022-12-13] MEDS: FOLIC ACID 1 MG TABLET PO SCH (08:33)
[2022-12-13] MEDS: QUEtiapine FUMARATE 25 MG TABLET PO SCH ×3 (08:33→16:28)
[2022-12-13] MEDS: NALTREXONE HCL 50 MG TABLET PO SCH (08:33)
[2022-12-13] MEDS: OMEGA-3/DHA/EPA/FISH OIL 1,000 MG CAPSULE PO SCH (08:34)
[2022-12-13] MEDS: MELATONIN 5 MG TABLET PO SCH (20:30)
[2022-12-13] MEDS: QUEtiapine FUMARATE 100 MG TABLET PO SCH (20:30)
[2022-12-13 21:28] VITALS: BP 100/68; PULSE 101; RESP 18; TEMP 97.8; O2SAT 96
[2022-12-14 08:28] VITALS: BP 104/68; PULSE 97; RESP 18; TEMP 98; O2SAT 97
[2022-12-14] MEDS: QUEtiapine FUMARATE 25 MG TABLET PO SCH ×3 (08:32→16:31)
[2022-12-14] MEDS: DIVALPROEX SODIUM 250 MG ER TABLET PO SCH ×4 (08:32→20:29)
[2022-12-14] MEDS: FOLIC ACID 1 MG TABLET PO SCH (08:32)
[2022-12-14] MEDS: CloZAPine 25 MG TABLET PO SCH ×2 (08:32→20:29)
[2022-12-14] MEDS: OMEGA-3/DHA/EPA/FISH OIL 1,000 MG CAPSULE PO SCH (08:32)
[2022-12-14] MEDS: THIAMINE 100 MG TABLET PO SCH ×2 (08:32→16:30)
[2022-12-14] MEDS: NALTREXONE HCL 50 MG TABLET PO SCH (08:32)
[2022-12-14 12:01] LABS: GLUCOMETER DEV NAME(LOC) POC.BV
[2022-12-14 20:21] VITALS: BP 106/61; PULSE 100; RESP 17; TEMP 98.1; O2SAT 97
[2022-12-14] MEDS: MELATONIN 5 MG TABLET PO SCH (20:29)
[2022-12-14] MEDS: QUEtiapine FUMARATE 100 MG TABLET PO SCH (20:29)
[2022-12-15] MEDS: DIVALPROEX SODIUM 250 MG ER TABLET PO SCH ×4 (08:28→20:41)
[2022-12-15] MEDS: QUEtiapine FUMARATE 25 MG TABLET PO SCH ×2 (08:28→12:31)
[2022-12-15] MEDS: NALTREXONE HCL 50 MG TABLET PO SCH (08:28)
[2022-12-15] MEDS: THIAMINE 100 MG TABLET PO SCH ×2 (08:28→16:32)
[2022-12-15] MEDS: OMEGA-3/DHA/EPA/FISH OIL 1,000 MG CAPSULE PO SCH (08:28)
[2022-12-15] MEDS: FOLIC ACID 1 MG TABLET PO SCH (08:28)
[2022-12-15 08:31] VITALS: BP 109/69; PULSE 103; RESP 17; TEMP 98.3; O2SAT 97
[2022-12-15] MEDS ORDERED: CloZAPine 25 MG TABLET PO SCH (09:00)
[2022-12-15 20:41] VITALS: BP 95/64; PULSE 100; RESP 18; TEMP 97.9; O2SAT 97
[2022-12-15] MEDS: MELATONIN 5 MG TABLET PO SCH (20:41)
[2022-12-15] MEDS: QUEtiapine FUMARATE 100 MG TABLET PO SCH (20:41)
[2022-12-15] MEDS ORDERED: CloZAPine 100 MG TABLET PO SCH (21:00)
[2022-12-16 08:07] LABS: BASOPHILS % (AUTO) 0.8 % (0.0-2.0); EOSINOPHILS % (AUTO) 4.6 % (1.0-6.0); HEMATOCRIT 44.2 % (41-53); LYMPHOCYTES # (AUTO) 1.5 K/uL (1.0-4.8); LYMPHOCYTES % (AUTO) 44.9 % (22.0-44.0); MEAN CORPUSCULAR HEMOGLOBIN 32.3 pg (26.0-34.0); MEAN CORPUSCULAR VOLUME 95 fL (80-100); MONOCYTES # (AUTO) 0.3 K/uL (0.1-1.0); MONOCYTES % (AUTO) 9.2 % (2.0-9.0); NEUTROPHILS # (AUTO) 1.3 K/uL (1.8-7.7); NEUTROPHILS % (AUTO) 40.5 % (40.0-70.0); PLATELET COUNT (AUTO) 252 K/uL (150-450); RED BLOOD CELL COUNT(AUTO) 4.65 MIL/uL (4.50-5.90)
[2022-12-16 08:35] VITALS: BP 100/64; PULSE 107; RESP 16; TEMP 98.2; O2SAT 97
[2022-12-16] MEDS: DIVALPROEX SODIUM 250 MG ER TABLET PO SCH ×4 (08:43→20:33)
[2022-12-16] MEDS: OMEGA-3/DHA/EPA/FISH OIL 1,000 MG CAPSULE PO SCH (08:43)
[2022-12-16] MEDS: NALTREXONE HCL 50 MG TABLET PO SCH (08:44)
[2022-12-16] MEDS: FOLIC ACID 1 MG TABLET PO SCH (08:44)
[2022-12-16] MEDS: THIAMINE 100 MG TABLET PO SCH ×2 (08:44→16:31)
[2022-12-16] MEDS ORDERED: CloZAPine 25 MG TABLET PO SCH (09:00)
[2022-12-16 20:13] VITALS: BP 93/60; PULSE 103; RESP 19; TEMP 97.6; O2SAT 97
[2022-12-16] MEDS: MELATONIN 5 MG TABLET PO SCH (20:34)
[2022-12-16] MEDS ORDERED: CloZAPine 100 MG TABLET PO SCH (21:00)
[2022-12-17] MEDS: THIAMINE 100 MG TABLET PO SCH ×2 (08:19→16:36)
[2022-12-17] MEDS: OMEGA-3/DHA/EPA/FISH OIL 1,000 MG CAPSULE PO SCH (08:19)
[2022-12-17] MEDS: DIVALPROEX SODIUM 250 MG ER TABLET PO SCH ×4 (08:19→20:37)
[2022-12-17] MEDS: NALTREXONE HCL 50 MG TABLET PO SCH (08:19)
[2022-12-17] MEDS: FOLIC ACID 1 MG TABLET PO SCH (08:19)
[2022-12-17 08:28] VITALS: BP 102/69; PULSE 108; RESP 19; TEMP 98.4; O2SAT 98
[2022-12-17] MEDS ORDERED: CloZAPine 25 MG TABLET PO SCH (09:00)
[2022-12-17 20:16] VITALS: BP 98/61; PULSE 104; RESP 18; TEMP 97.8; O2SAT 98
[2022-12-17] MEDS: MELATONIN 5 MG TABLET PO SCH (20:37)
[2022-12-17] MEDS ORDERED: CloZAPine 100 MG TABLET PO SCH (21:00)
[2022-12-18] MEDS: NALTREXONE HCL 50 MG TABLET PO SCH (08:43)
[2022-12-18] MEDS: CloZAPine 100 MG TABLET PO SCH ×2 (08:43→20:34)
[2022-12-18] MEDS: FOLIC ACID 1 MG TABLET PO SCH (08:44)
[2022-12-18] MEDS: OMEGA-3/DHA/EPA/FISH OIL 1,000 MG CAPSULE PO SCH (08:44)
[2022-12-18] MEDS: THIAMINE 100 MG TABLET PO SCH (08:44)
[2022-12-18] MEDS: DIVALPROEX SODIUM 250 MG ER TABLET PO SCH ×4 (08:44→20:34)
[2022-12-18 09:04] VITALS: BP 104/65; PULSE 109; RESP 17; TEMP 98.7; O2SAT 98
[2022-12-18] MEDS: MELATONIN 5 MG TABLET PO SCH (20:34)
[2022-12-18 20:44] VITALS: BP 103/61; PULSE 100; RESP 18; TEMP 98.2; O2SAT 97
[2022-12-19 08:13] VITALS: BP 107/62; PULSE 103; RESP 18; TEMP 97.4; O2SAT 98
[2022-12-19] MEDS: DIVALPROEX SODIUM 250 MG ER TABLET PO SCH ×4 (08:29→20:28)
[2022-12-19] MEDS: CloZAPine 100 MG TABLET PO SCH ×2 (08:29→20:28)
[2022-12-19] MEDS: OMEGA-3/DHA/EPA/FISH OIL 1,000 MG CAPSULE PO SCH (08:29)
[2022-12-19] MEDS: NALTREXONE HCL 50 MG TABLET PO SCH (08:29)
[2022-12-19] MEDS: BENZTROPINE MESYLATE 1 MG TABLET PO SCH (12:14)
[2022-12-19 20:19] VITALS: BP 98/61; PULSE 101; RESP 18; TEMP 97.7; O2SAT 97
[2022-12-19] MEDS: MELATONIN 5 MG TABLET PO SCH (20:28)
[2022-12-20] MEDS: DIVALPROEX SODIUM 250 MG ER TABLET PO SCH ×4 (08:27→20:18)
[2022-12-20] MEDS: NALTREXONE HCL 50 MG TABLET PO SCH (08:27)
[2022-12-20] MEDS: OMEGA-3/DHA/EPA/FISH OIL 1,000 MG CAPSULE PO SCH (08:27)
[2022-12-20] MEDS: BENZTROPINE MESYLATE 1 MG TABLET PO SCH (08:27)
[2022-12-20 08:30] VITALS: BP 112/63; PULSE 97; RESP 18; TEMP 97.5; O2SAT 97
[2022-12-20] MEDS ORDERED: CloZAPine 25 MG TABLET PO SCH (09:00)
[2022-12-20] MEDS: MELATONIN 5 MG TABLET PO SCH (20:18)
[2022-12-20 20:30] VITALS: BP 92/62; PULSE 105; RESP 17; TEMP 97.4; O2SAT 100
[2022-12-20] MEDS ORDERED: CloZAPine 100 MG TABLET PO SCH (21:00)
[2022-12-21 08:00] VITALS: BP 100/69; PULSE 99; RESP 17; TEMP 97.6; O2SAT 99
[2022-12-21] MEDS: NALTREXONE HCL 50 MG TABLET PO SCH (08:25)
[2022-12-21] MEDS: BENZTROPINE MESYLATE 1 MG TABLET PO SCH (08:25)
[2022-12-21] MEDS: DIVALPROEX SODIUM 250 MG ER TABLET PO SCH ×4 (08:25→20:50)
[2022-12-21] MEDS: OMEGA-3/DHA/EPA/FISH OIL 1,000 MG CAPSULE PO SCH (08:25)
[2022-12-21] MEDS ORDERED: CloZAPine 25 MG TABLET PO SCH (09:00)
[2022-12-21] MEDS: LITHIUM CARBONATE 300 MG CAPSULE PO SCH ×2 (09:10→16:16)
[2022-12-21 20:15] VITALS: BP 103/59; PULSE 108; RESP 18; TEMP 97.8; O2SAT 98
[2022-12-21] MEDS: MELATONIN 5 MG TABLET PO SCH (20:52)
[2022-12-21] MEDS ORDERED: CloZAPine 100 MG TABLET PO SCH ×2 (21:00)
[2022-12-22 08:21] LABS: LITHIUM 0.26 mmol/L (0.60-1.20)
[2022-12-22 08:23] VITALS: BP 100/67; PULSE 65; RESP 17; TEMP 98.3; O2SAT 97
[2022-12-22] MEDS: LITHIUM CARBONATE 300 MG CAPSULE PO SCH ×2 (08:28→16:43)
[2022-12-22] MEDS: NALTREXONE HCL 50 MG TABLET PO SCH (08:28)
[2022-12-22] MEDS: BENZTROPINE MESYLATE 1 MG TABLET PO SCH (08:28)
[2022-12-22] MEDS: CloZAPine 100 MG TABLET PO SCH ×2 (08:28→20:43)
[2022-12-22] MEDS: DIVALPROEX SODIUM 250 MG ER TABLET PO SCH ×4 (08:28→20:42)
[2022-12-22] MEDS: OMEGA-3/DHA/EPA/FISH OIL 1,000 MG CAPSULE PO SCH (08:29)
[2022-12-22 20:39] VITALS: BP 102/61; PULSE 99; RESP 18; TEMP 97.8; O2SAT 96
[2022-12-22] MEDS: MELATONIN 5 MG TABLET PO SCH (20:42)
[2022-12-22] MEDS ORDERED: CloZAPine 100 MG TABLET PO SCH (21:00)
[2022-12-23 08:11] LABS: BASOPHILS % (AUTO) 0.5 % (0.0-2.0); EOSINOPHILS % (AUTO) 4.5 % (1.0-6.0); HEMATOCRIT 44.5 % (41-53); HEMOGLOBIN 15.3 g/dL (13.5-17.5); LYMPHOCYTES # (AUTO) 1.6 K/uL (1.0-4.8); LYMPHOCYTES % (AUTO) 27.8 % (22.0-44.0); MEAN CORPUSCULAR HEMOGLOBIN 32.5 pg (26.0-34.0); MEAN CORPUSCULAR HGB CONC 34.4 G/dL (31.0-37.0); MEAN CORPUSCULAR VOLUME 94 fL (80-100); MONOCYTES # (AUTO) 0.5 K/uL (0.1-1.0); MONOCYTES % (AUTO) 8.4 % (2.0-9.0); NEUTROPHILS # (AUTO) 3.3 K/uL (1.8-7.7); NEUTROPHILS % (AUTO) 58.8 % (40.0-70.0); PLATELET COUNT (AUTO) 217 K/uL (150-450); RED BLOOD CELL COUNT(AUTO) 4.72 MIL/uL (4.50-5.90); RED CELL DISTRIBUTION WIDTH 12.8 % (11.5-14.5)
[2022-12-23 08:27] VITALS: BP 104/68; PULSE 104; RESP 17; TEMP 97.7; O2SAT 96
[2022-12-23] MEDS: OMEGA-3/DHA/EPA/FISH OIL 1,000 MG CAPSULE PO SCH (08:37)
[2022-12-23] MEDS: DIVALPROEX SODIUM 250 MG ER TABLET PO SCH ×4 (08:37→20:17)
[2022-12-23] MEDS: LITHIUM CARBONATE 300 MG CAPSULE PO SCH ×3 (08:37→17:04)
[2022-12-23] MEDS: BENZTROPINE MESYLATE 1 MG TABLET PO SCH (08:37)
[2022-12-23] MEDS: CloZAPine 100 MG TABLET PO SCH ×2 (08:37→20:18)
[2022-12-23] MEDS: NALTREXONE HCL 50 MG TABLET PO SCH (08:37)
[2022-12-23 08:48] LABS: APPEARANCE,URINE CLEAR (CLEAR); BILIRUBIN,URINE NEGATIVE (NEGATIVE); GLUCOSE, URINE (UA) TRACE mg/dL (NEGATIVE); KETONES,URINE NEGATIVE (NEGATIVE); LEUKOCYTE ESTERASE ,URINE NEGATIVE (NEGATIVE); NITRATE,URINE NEGATIVE (NEGATIVE); OCCULT BLOOD,URINE NEGATIVE (NEGATIVE); PROTEIN,URINE NEGATIVE (NEGATIVE); UROBILINOGEN,URINE <=1.0 mg/dL (<=1.0)
[2022-12-23 08:53] LABS: AMPHET/METH SCREEN,URINE NEGATIVE (NEGATIVE); BARBITURATE SCREEN, URINE NEGATIVE (NEGATIVE); BENZODIAZEPINES SCREEN,URINE NEGATIVE (NEGATIVE); CANNABINOID SCREEN,URINE NEGATIVE (NEGATIVE); COCAINE SCREEN,URINE NEGATIVE (NEGATIVE); METHADONE SCREEN, URINE NEGATIVE (NEGATIVE); OPIATE SCREEN,URINE NEGATIVE (NEGATIVE); PHENCYCLIDINE SCREEN,URINE NEGATIVE (NEGATIVE)
[2022-12-23 09:06] LABS: BACTERIA,URINE None Seen /HPF (None Seen); RBC,URINE None Seen /HPF (0-2); WBC,URINE None Seen /HPF (0-5)
[2022-12-23 20:05] VITALS: BP 108/66; PULSE 90; RESP 16; TEMP 98; O2SAT 98
[2022-12-23] MEDS: MELATONIN 5 MG TABLET PO SCH (20:17)
[2022-12-24 08:13] VITALS: BP 109/69; PULSE 98; RESP 16; TEMP 98.6; O2SAT 97
[2022-12-24] MEDS: OMEGA-3/DHA/EPA/FISH OIL 1,000 MG CAPSULE PO SCH (08:20)
[2022-12-24] MEDS: DIVALPROEX SODIUM 250 MG ER TABLET PO SCH ×2 (08:20→12:37)
[2022-12-24] MEDS: NALTREXONE HCL 50 MG TABLET PO SCH (08:20)
[2022-12-24] MEDS: LITHIUM CARBONATE 300 MG CAPSULE PO SCH ×2 (08:20→12:37)
[2022-12-24] MEDS: CloZAPine 100 MG TABLET PO SCH (08:20)
[2022-12-24] MEDS ORDERED: MELA5TAB40 PO (14:42)
[2022-12-24] MEDS ORDERED: NALT50TA PO (14:42)
[2022-12-24] MEDS ORDERED: OMEG-135 PO (14:42)
[2022-12-24] MEDS ORDERED: LITH300C3 PO (14:42)
[2022-12-24] MEDS ORDERED: DIVA500T69 PO (14:42)
[2022-12-24] MEDS ORDERED: CLOZ100T61 PO (14:42)
[2022-12-24 20:10] VITALS: BP 111/65; PULSE 101; RESP 19; TEMP 97.8; O2SAT 98
[2022-12-24] MEDS: MELATONIN 5 MG TABLET PO SCH (20:41)
[2022-12-24] MEDS ORDERED: DIVALPROEX SODIUM 500 MG ER TABLET PO SCH (21:00)
[2022-12-24] MEDS ORDERED: CloZAPine 100 MG TABLET PO SCH (21:00)
[2022-12-24] MEDS ORDERED: LITHIUM CARBONATE 300 MG CAPSULE PO SCH (21:00)
[2022-12-25] MEDS: OMEGA-3/DHA/EPA/FISH OIL 1,000 MG CAPSULE PO SCH (08:19)
[2022-12-25] MEDS: NALTREXONE HCL 50 MG TABLET PO SCH (08:19)
[2022-12-25 08:37] VITALS: BP 97/60; PULSE 102; RESP 17; TEMP 97.6; O2SAT 97
[2022-12-25] MEDS ORDERED: CLOZ100T61 PO ×2 (08:49→11:41)
[2022-12-25] MEDS ORDERED: DIVA500T53 PO (08:49)
[2022-12-25] MEDS ORDERED: LITH300C3 PO ×2 (08:50→11:41)
[2022-12-25] MEDS ORDERED: MELA5TAB40 PO ×2 (08:50→11:41)
[2022-12-25] MEDS ORDERED: OMEG-135 PO ×2 (08:51→11:41)
[2022-12-25] MEDS ORDERED: NALT50TA6 PO (08:51)
[2022-12-25] MEDS ORDERED: NALT50TA PO (11:41)
[2022-12-25] MEDS ORDERED: DIVA500T69 PO (11:41)
== END 2022-12-25 10:56 | disposition home or self-care (01) | DRG 885 ==
LOC: B2X 11:08
PROVIDERS: ADMIT Psychiatry & Neurology Psychiatry; ATTEND Psychiatry & Neurology Psychiatry
DX: F25.1 Schizoaffective disorder, depressive type (principal); J44.9 Chronic obstructive pulmonary disease, unspecified; K11.7 Disturbances of salivary secretion; F17.200 Nicotine dependence, unspecified, uncomplicated; Z20.822 Contact with and (suspected) exposure to COVID-19; Z55.9 Problems related to education and literacy, unspecified; Z79.899 Other long term (current) drug therapy; Z63.9 Problem related to primary support group, unspecified; Z91.199 Patient's noncompliance with other medical treatment and regimen due to unspecified reason; Z65.3 Problems related to other legal circumstances
CPT/HCPCS: 80053; 80061; 80159; 80164; 80178; 80307; 81001; 83036; 84439; 84443; 85025; 86592; Q9967

== ENCOUNTER → 2023-01-04 | Outpatient (CLI) | payer MEDICARE, OTHER ==
[~2023-01-04] MED LIST changes: +CLOZ100T61 PO; +DIVA500T69 PO; +LITH300C3 PO; +MELA5TAB40 PO; +NALT50TA PO; +OMEG-135 PO; -RISPC50 IM
[2023-01-04 17:04] LABS: BASOPHILS % (AUTO) 0.6 % (0.0-2.0); EOSINOPHILS % (AUTO) 7.7 % (1.0-6.0); HEMATOCRIT 42.1 % (41-53); HEMOGLOBIN 14.5 g/dL (13.5-17.5); LYMPHOCYTES # (AUTO) 1.6 K/uL (1.0-4.8); LYMPHOCYTES % (AUTO) 21.1 % (22.0-44.0); MEAN CORPUSCULAR HEMOGLOBIN 32.8 pg (26.0-34.0); MEAN CORPUSCULAR HGB CONC 34.4 G/dL (31.0-37.0); MEAN CORPUSCULAR VOLUME 95 fL (80-100); MONOCYTES # (AUTO) 0.6 K/uL (0.1-1.0); MONOCYTES % (AUTO) 7.4 % (2.0-9.0); NEUTROPHILS # (AUTO) 4.9 K/uL (1.8-7.7); NEUTROPHILS % (AUTO) 63.2 % (40.0-70.0); PLATELET COUNT (AUTO) 333 K/uL (150-450); RED BLOOD CELL COUNT(AUTO) 4.42 MIL/uL (4.50-5.90)
== END | disposition home or self-care (01) ==
LOC: LABMN 12:53
PROVIDERS: ATTEND Psychiatry & Neurology Psychiatry
DX: F20.9 Schizophrenia, unspecified (principal)
CPT/HCPCS: 80159; 85025

== ENCOUNTER → 2023-01-12 | Outpatient (CLI) | payer MEDICARE, OTHER ==
[2023-01-12 14:51] LABS: EOSINOPHILS % (AUTO) 11.5 % (1.0-6.0); HEMATOCRIT 40.5 % (41-53); HEMOGLOBIN 13.8 g/dL (13.5-17.5); LYMPHOCYTES # (AUTO) 1.3 K/uL (1.0-4.8); LYMPHOCYTES % (AUTO) 12.1 % (22.0-44.0); MEAN CORPUSCULAR HEMOGLOBIN 32.3 pg (26.0-34.0); MEAN CORPUSCULAR HGB CONC 34.1 G/dL (31.0-37.0); MEAN CORPUSCULAR VOLUME 95 fL (80-100); MONOCYTES # (AUTO) 0.7 K/uL (0.1-1.0); NEUTROPHILS # (AUTO) 7.2 K/uL (1.8-7.7); NEUTROPHILS % (AUTO) 68.4 % (40.0-70.0); PLATELET COUNT (AUTO) 296 K/uL (150-450); RED BLOOD CELL COUNT(AUTO) 4.27 MIL/uL (4.50-5.90); RED CELL DISTRIBUTION WIDTH 12.9 % (11.5-14.5)
== END | disposition home or self-care (01) ==
LOC: LABMN 12:12
PROVIDERS: ATTEND Psychiatry & Neurology Psychiatry
DX: F20.9 Schizophrenia, unspecified (principal)
CPT/HCPCS: 85025

== ENCOUNTER → 2023-01-19 | Outpatient (CLI) | payer MEDICARE, MEDICAID ==
[2023-01-19 15:31] LABS: BASOPHILS % (AUTO) 0.3 % (0.0-2.0); EOSINOPHILS % (AUTO) 11.2 % (1.0-6.0); HEMOGLOBIN 14.3 g/dL (13.5-17.5); LYMPHOCYTES # (AUTO) 1.3 K/uL (1.0-4.8); LYMPHOCYTES % (AUTO) 10.9 % (22.0-44.0); MEAN CORPUSCULAR HEMOGLOBIN 31.7 pg (26.0-34.0); MEAN CORPUSCULAR HGB CONC 33.3 G/dL (31.0-37.0); MEAN CORPUSCULAR VOLUME 95 fL (80-100); MONOCYTES # (AUTO) 0.9 K/uL (0.1-1.0); MONOCYTES % (AUTO) 7.7 % (2.0-9.0); NEUTROPHILS # (AUTO) 8.4 K/uL (1.8-7.7); NEUTROPHILS % (AUTO) 69.9 % (40.0-70.0); PLATELET COUNT (AUTO) 297 K/uL (150-450); RED BLOOD CELL COUNT(AUTO) 4.52 MIL/uL (4.50-5.90); RED CELL DISTRIBUTION WIDTH 12.5 % (11.5-14.5); WHITE BLOOD COUNT (AUTO) 12.1 K/uL (4.5-11.0)
== END | disposition home or self-care (01) ==
LOC: LABMN 13:50
PROVIDERS: ATTEND Psychiatry & Neurology Psychiatry
DX: F20.9 Schizophrenia, unspecified (principal)
CPT/HCPCS: 85025

== ENCOUNTER → 2023-02-01 | Outpatient (CLI) | payer MEDICARE, MEDICAID ==
[2023-02-01 17:33] LABS: BASOPHILS % (AUTO) 0.5 % (0.0-2.0); EOSINOPHILS % (AUTO) 5.7 % (1.0-6.0); HEMATOCRIT 41.3 % (41-53); LYMPHOCYTES # (AUTO) 1.4 K/uL (1.0-4.8); LYMPHOCYTES % (AUTO) 11.5 % (22.0-44.0); MEAN CORPUSCULAR HEMOGLOBIN 32.8 pg (26.0-34.0); MEAN CORPUSCULAR HGB CONC 33.9 G/dL (31.0-37.0); MEAN CORPUSCULAR VOLUME 97 fL (80-100); MONOCYTES % (AUTO) 8.7 % (2.0-9.0); NEUTROPHILS # (AUTO) 8.8 K/uL (1.8-7.7); NEUTROPHILS % (AUTO) 73.6 % (40.0-70.0); PLATELET COUNT (AUTO) 289 K/uL (150-450); RED BLOOD CELL COUNT(AUTO) 4.28 MIL/uL (4.50-5.90); RED CELL DISTRIBUTION WIDTH 13.4 % (11.5-14.5)
== END | disposition home or self-care (01) ==
LOC: LABMN 10:35
PROVIDERS: ATTEND Psychiatry & Neurology Psychiatry
DX: F20.9 Schizophrenia, unspecified (principal)
CPT/HCPCS: 85025

== ENCOUNTER → 2023-02-08 | Outpatient (CLI) | payer MEDICARE, MEDICAID ==
[2023-02-08 15:56] LABS: BASOPHILS % (AUTO) 0.6 % (0.0-2.0); EOSINOPHILS % (AUTO) 3.5 % (1.0-6.0); HEMATOCRIT 42.7 % (41-53); HEMOGLOBIN 14.5 g/dL (13.5-17.5); LYMPHOCYTES # (AUTO) 1.7 K/uL (1.0-4.8); MEAN CORPUSCULAR HEMOGLOBIN 32.9 pg (26.0-34.0); MEAN CORPUSCULAR VOLUME 97 fL (80-100); MONOCYTES # (AUTO) 0.8 K/uL (0.1-1.0); MONOCYTES % (AUTO) 9.6 % (2.0-9.0); NEUTROPHILS # (AUTO) 5.5 K/uL (1.8-7.7); NEUTROPHILS % (AUTO) 66.3 % (40.0-70.0); PLATELET COUNT (AUTO) 285 K/uL (150-450); RED BLOOD CELL COUNT(AUTO) 4.41 MIL/uL (4.50-5.90); WHITE BLOOD COUNT (AUTO) 8.3 K/uL (4.5-11.0)
== END | disposition home or self-care (01) ==
LOC: LABMN 13:47
PROVIDERS: ATTEND Psychiatry & Neurology Psychiatry
DX: F20.9 Schizophrenia, unspecified (principal)
CPT/HCPCS: 85025

== ENCOUNTER → 2023-02-15 | Outpatient (CLI) | payer MEDICARE, MEDICAID ==
[2023-02-15 14:47] LABS: BASOPHILS % (AUTO) 1.1 % (0.0-2.0); EOSINOPHILS % (AUTO) 5.4 % (1.0-6.0); HEMATOCRIT 41.9 % (41-53); HEMOGLOBIN 14.3 g/dL (13.5-17.5); LYMPHOCYTES # (AUTO) 1.8 K/uL (1.0-4.8); LYMPHOCYTES % (AUTO) 28.8 % (22.0-44.0); MEAN CORPUSCULAR HEMOGLOBIN 32.9 pg (26.0-34.0); MEAN CORPUSCULAR HGB CONC 34.2 G/dL (31.0-37.0); MEAN CORPUSCULAR VOLUME 96 fL (80-100); MONOCYTES # (AUTO) 0.8 K/uL (0.1-1.0); NEUTROPHILS # (AUTO) 3.4 K/uL (1.8-7.7); NEUTROPHILS % (AUTO) 52.7 % (40.0-70.0); PLATELET COUNT (AUTO) 265 K/uL (150-450); RED BLOOD CELL COUNT(AUTO) 4.36 MIL/uL (4.50-5.90); WHITE BLOOD COUNT (AUTO) 6.4 K/uL (4.5-11.0)
[2023-02-22 15:02] LABS: EOSINOPHILS % (AUTO) 6.5 % (1.0-6.0); HEMATOCRIT 43.4 % (41-53); HEMOGLOBIN 14.8 g/dL (13.5-17.5); LYMPHOCYTES # (AUTO) 2.1 K/uL (1.0-4.8); LYMPHOCYTES % (AUTO) 36.8 % (22.0-44.0); MEAN CORPUSCULAR HEMOGLOBIN 32.9 pg (26.0-34.0); MEAN CORPUSCULAR HGB CONC 34.2 G/dL (31.0-37.0); MEAN CORPUSCULAR VOLUME 96 fL (80-100); MONOCYTES # (AUTO) 0.6 K/uL (0.1-1.0); MONOCYTES % (AUTO) 11.1 % (2.0-9.0); NEUTROPHILS # (AUTO) 2.5 K/uL (1.8-7.7); NEUTROPHILS % (AUTO) 44.6 % (40.0-70.0); PLATELET COUNT (AUTO) 292 K/uL (150-450); RED BLOOD CELL COUNT(AUTO) 4.51 MIL/uL (4.50-5.90); WHITE BLOOD COUNT (AUTO) 5.7 K/uL (4.5-11.0)
== END | disposition home or self-care (01) ==
LOC: LABMN 13:32
PROVIDERS: ATTEND Psychiatry & Neurology Psychiatry
DX: F20.9 Schizophrenia, unspecified (principal)
CPT/HCPCS: 85025

== ENCOUNTER → 2023-02-22 | Outpatient (CLI) | payer MEDICARE, MEDICAID ==
[2023-02-22 15:02] LABS: EOSINOPHILS % (AUTO) 6.5 % (1.0-6.0); HEMATOCRIT 43.4 % (41-53); HEMOGLOBIN 14.8 g/dL (13.5-17.5); LYMPHOCYTES # (AUTO) 2.1 K/uL (1.0-4.8); LYMPHOCYTES % (AUTO) 36.8 % (22.0-44.0); MEAN CORPUSCULAR HEMOGLOBIN 32.9 pg (26.0-34.0); MEAN CORPUSCULAR HGB CONC 34.2 G/dL (31.0-37.0); MEAN CORPUSCULAR VOLUME 96 fL (80-100); MONOCYTES # (AUTO) 0.6 K/uL (0.1-1.0); MONOCYTES % (AUTO) 11.1 % (2.0-9.0); NEUTROPHILS # (AUTO) 2.5 K/uL (1.8-7.7); NEUTROPHILS % (AUTO) 44.6 % (40.0-70.0); PLATELET COUNT (AUTO) 292 K/uL (150-450); RED BLOOD CELL COUNT(AUTO) 4.51 MIL/uL (4.50-5.90); WHITE BLOOD COUNT (AUTO) 5.7 K/uL (4.5-11.0)
== END | disposition home or self-care (01) ==
LOC: LABMN 09:55
PROVIDERS: ATTEND Psychiatry & Neurology Psychiatry
DX: F20.9 Schizophrenia, unspecified (principal)
CPT/HCPCS: 85025

== ENCOUNTER → 2023-03-01 | Outpatient (CLI) | payer MEDICARE, MEDICAID ==
[2023-03-01 16:21] LABS: BASOPHILS % (AUTO) 0.4 % (0.0-2.0); HEMATOCRIT 42.3 % (41-53); HEMOGLOBIN 14.2 g/dL (13.5-17.5); LYMPHOCYTES # (AUTO) 1.9 K/uL (1.0-4.8); LYMPHOCYTES % (AUTO) 30.7 % (22.0-44.0); MEAN CORPUSCULAR HEMOGLOBIN 32.8 pg (26.0-34.0); MEAN CORPUSCULAR HGB CONC 33.7 G/dL (31.0-37.0); MEAN CORPUSCULAR VOLUME 97 fL (80-100); MONOCYTES # (AUTO) 0.7 K/uL (0.1-1.0); MONOCYTES % (AUTO) 11.3 % (2.0-9.0); NEUTROPHILS # (AUTO) 3.4 K/uL (1.8-7.7); NEUTROPHILS % (AUTO) 54.6 % (40.0-70.0); PLATELET COUNT (AUTO) 309 K/uL (150-450); RED BLOOD CELL COUNT(AUTO) 4.34 MIL/uL (4.50-5.90); RED CELL DISTRIBUTION WIDTH 12.7 % (11.5-14.5); WHITE BLOOD COUNT (AUTO) 6.2 K/uL (4.5-11.0)
== END | disposition home or self-care (01) ==
LOC: LABMN 12:45
PROVIDERS: ATTEND Psychiatry & Neurology Psychiatry
DX: F20.9 Schizophrenia, unspecified (principal)
CPT/HCPCS: 85025

== ENCOUNTER → 2023-03-08 | Outpatient (CLI) | payer MEDICARE, MEDICAID ==
[2023-03-08 15:23] LABS: BASOPHILS % (AUTO) 0.7 % (0.0-2.0); EOSINOPHILS % (AUTO) 5.5 % (1.0-6.0); HEMATOCRIT 41.2 % (41-53); LYMPHOCYTES # (AUTO) 1.8 K/uL (1.0-4.8); MEAN CORPUSCULAR HEMOGLOBIN 32.9 pg (26.0-34.0); MEAN CORPUSCULAR HGB CONC 33.9 G/dL (31.0-37.0); MEAN CORPUSCULAR VOLUME 97 fL (80-100); MONOCYTES # (AUTO) 0.8 K/uL (0.1-1.0); MONOCYTES % (AUTO) 11.4 % (2.0-9.0); NEUTROPHILS # (AUTO) 3.8 K/uL (1.8-7.7); NEUTROPHILS % (AUTO) 55.4 % (40.0-70.0); PLATELET COUNT (AUTO) 309 K/uL (150-450); RED BLOOD CELL COUNT(AUTO) 4.25 MIL/uL (4.50-5.90); RED CELL DISTRIBUTION WIDTH 12.7 % (11.5-14.5); WHITE BLOOD COUNT (AUTO) 6.8 K/uL (4.5-11.0)
== END | disposition home or self-care (01) ==
LOC: LABMN 12:31
PROVIDERS: ATTEND Psychiatry & Neurology Psychiatry
DX: F20.9 Schizophrenia, unspecified (principal)
CPT/HCPCS: 85025

== ENCOUNTER → 2023-03-22 | Outpatient (CLI) | payer MEDICARE, MEDICAID ==
[2023-03-22 17:50] LABS: BASOPHILS % (AUTO) 0.8 % (0.0-2.0); EOSINOPHILS % (AUTO) 4.3 % (1.0-6.0); HEMOGLOBIN 14.3 g/dL (13.5-17.5); LYMPHOCYTES # (AUTO) 2.2 K/uL (1.0-4.8); LYMPHOCYTES % (AUTO) 23.6 % (22.0-44.0); MEAN CORPUSCULAR HEMOGLOBIN 33.1 pg (26.0-34.0); MEAN CORPUSCULAR HGB CONC 34.1 G/dL (31.0-37.0); MEAN CORPUSCULAR VOLUME 97 fL (80-100); MONOCYTES # (AUTO) 0.7 K/uL (0.1-1.0); MONOCYTES % (AUTO) 7.8 % (2.0-9.0); NEUTROPHILS # (AUTO) 5.8 K/uL (1.8-7.7); NEUTROPHILS % (AUTO) 63.5 % (40.0-70.0); PLATELET COUNT (AUTO) 313 K/uL (150-450); RED BLOOD CELL COUNT(AUTO) 4.32 MIL/uL (4.50-5.90); RED CELL DISTRIBUTION WIDTH 12.6 % (11.5-14.5); WHITE BLOOD COUNT (AUTO) 9.2 K/uL (4.5-11.0)
== END | disposition home or self-care (01) ==
LOC: LABMN 09:00
PROVIDERS: ATTEND Psychiatry & Neurology Psychiatry
DX: F20.9 Schizophrenia, unspecified (principal)
CPT/HCPCS: 85025

== ENCOUNTER → 2023-04-12 | Outpatient (CLI) | payer MEDICARE, MEDICAID ==
[2023-04-12 15:14] LABS: BASOPHILS % (AUTO) 0.8 % (0.0-2.0); EOSINOPHILS % (AUTO) 2.4 % (1.0-6.0); HEMATOCRIT 43.3 % (41-53); HEMOGLOBIN 15.3 g/dL (13.5-17.5); LYMPHOCYTES # (AUTO) 2.5 K/uL (1.0-4.8); LYMPHOCYTES % (AUTO) 33.1 % (22.0-44.0); MEAN CORPUSCULAR HEMOGLOBIN 33.5 pg (26.0-34.0); MEAN CORPUSCULAR HGB CONC 35.3 G/dL (31.0-37.0); MEAN CORPUSCULAR VOLUME 95 fL (80-100); MONOCYTES # (AUTO) 0.9 K/uL (0.1-1.0); MONOCYTES % (AUTO) 11.8 % (2.0-9.0); NEUTROPHILS # (AUTO) 3.9 K/uL (1.8-7.7); NEUTROPHILS % (AUTO) 51.9 % (40.0-70.0); PLATELET COUNT (AUTO) 288 K/uL (150-450); RED BLOOD CELL COUNT(AUTO) 4.57 MIL/uL (4.50-5.90); RED CELL DISTRIBUTION WIDTH 12.3 % (11.5-14.5); WHITE BLOOD COUNT (AUTO) 7.6 K/uL (4.5-11.0)
== END | disposition home or self-care (01) ==
LOC: LABMN 10:35
PROVIDERS: ATTEND Psychiatry & Neurology Psychiatry
DX: F20.9 Schizophrenia, unspecified (principal)
CPT/HCPCS: 85025

== ENCOUNTER → 2023-04-19 | Outpatient (CLI) | payer MEDICARE, MEDICAID ==
[2023-04-19 15:22] LABS: EOSINOPHILS % (AUTO) 2.8 % (1.0-6.0); HEMATOCRIT 43.2 % (41-53); HEMOGLOBIN 14.7 g/dL (13.5-17.5); LYMPHOCYTES # (AUTO) 1.9 K/uL (1.0-4.8); LYMPHOCYTES % (AUTO) 31.2 % (22.0-44.0); MEAN CORPUSCULAR HEMOGLOBIN 32.6 pg (26.0-34.0); MEAN CORPUSCULAR HGB CONC 34.1 G/dL (31.0-37.0); MEAN CORPUSCULAR VOLUME 96 fL (80-100); MONOCYTES # (AUTO) 0.6 K/uL (0.1-1.0); MONOCYTES % (AUTO) 10.3 % (2.0-9.0); NEUTROPHILS # (AUTO) 3.3 K/uL (1.8-7.7); NEUTROPHILS % (AUTO) 54.7 % (40.0-70.0); PLATELET COUNT (AUTO) 280 K/uL (150-450); RED BLOOD CELL COUNT(AUTO) 4.51 MIL/uL (4.50-5.90); RED CELL DISTRIBUTION WIDTH 12.5 % (11.5-14.5)
== END | disposition home or self-care (01) ==
LOC: LABMN 14:09
PROVIDERS: ATTEND Psychiatry & Neurology Psychiatry
DX: F20.9 Schizophrenia, unspecified (principal)
CPT/HCPCS: 85025

== ENCOUNTER → 2023-04-26 | Outpatient (CLI) | payer MEDICARE, MEDICAID ==
[2023-04-26 14:26] LABS: BASOPHILS % (AUTO) 0.9 % (0.0-2.0); EOSINOPHILS % (AUTO) 3.8 % (1.0-6.0); HEMATOCRIT 41.1 % (41-53); HEMOGLOBIN 14.2 g/dL (13.5-17.5); LYMPHOCYTES # (AUTO) 1.3 K/uL (1.0-4.8); LYMPHOCYTES % (AUTO) 22.4 % (22.0-44.0); MEAN CORPUSCULAR HGB CONC 34.6 G/dL (31.0-37.0); MEAN CORPUSCULAR VOLUME 95 fL (80-100); MONOCYTES # (AUTO) 0.6 K/uL (0.1-1.0); MONOCYTES % (AUTO) 10.2 % (2.0-9.0); NEUTROPHILS # (AUTO) 3.7 K/uL (1.8-7.7); NEUTROPHILS % (AUTO) 62.7 % (40.0-70.0); PLATELET COUNT (AUTO) 280 K/uL (150-450); RED BLOOD CELL COUNT(AUTO) 4.31 MIL/uL (4.50-5.90); RED CELL DISTRIBUTION WIDTH 12.2 % (11.5-14.5); WHITE BLOOD COUNT (AUTO) 5.9 K/uL (4.5-11.0)
== END | disposition home or self-care (01) ==
LOC: LABMN 12:54
PROVIDERS: ATTEND Psychiatry & Neurology Psychiatry
DX: F20.9 Schizophrenia, unspecified (principal)
CPT/HCPCS: 85025

== ENCOUNTER → 2023-05-03 | Outpatient (CLI) | payer MEDICARE, MEDICAID ==
[2023-05-03 17:50] LABS: BASOPHILS % (AUTO) 1.2 % (0.0-2.0); EOSINOPHILS % (AUTO) 4.4 % (1.0-6.0); HEMATOCRIT 42.4 % (41-53); HEMOGLOBIN 14.5 g/dL (13.5-17.5); LYMPHOCYTES # (AUTO) 1.5 K/uL (1.0-4.8); LYMPHOCYTES % (AUTO) 23.7 % (22.0-44.0); MEAN CORPUSCULAR HEMOGLOBIN 32.7 pg (26.0-34.0); MEAN CORPUSCULAR HGB CONC 34.2 G/dL (31.0-37.0); MEAN CORPUSCULAR VOLUME 96 fL (80-100); MONOCYTES # (AUTO) 0.6 K/uL (0.1-1.0); MONOCYTES % (AUTO) 8.9 % (2.0-9.0); NEUTROPHILS % (AUTO) 61.8 % (40.0-70.0); PLATELET COUNT (AUTO) 261 K/uL (150-450); RED BLOOD CELL COUNT(AUTO) 4.44 MIL/uL (4.50-5.90); RED CELL DISTRIBUTION WIDTH 12.4 % (11.5-14.5); WHITE BLOOD COUNT (AUTO) 6.5 K/uL (4.5-11.0)
== END | disposition home or self-care (01) ==
LOC: LABMN 11:00
PROVIDERS: ATTEND Psychiatry & Neurology Psychiatry
DX: F20.9 Schizophrenia, unspecified (principal)
CPT/HCPCS: 85025

== ENCOUNTER → 2023-05-11 | Outpatient (CLI) | payer MEDICARE, MEDICAID ==
[2023-05-11 15:19] LABS: BASOPHILS % (AUTO) 0.9 % (0.0-2.0); EOSINOPHILS % (AUTO) 3.9 % (1.0-6.0); HEMATOCRIT 42.1 % (41-53); HEMOGLOBIN 14.8 g/dL (13.5-17.5); LYMPHOCYTES # (AUTO) 2.1 K/uL (1.0-4.8); LYMPHOCYTES % (AUTO) 31.3 % (22.0-44.0); MEAN CORPUSCULAR HGB CONC 35.2 G/dL (31.0-37.0); MEAN CORPUSCULAR VOLUME 94 fL (80-100); MONOCYTES # (AUTO) 0.8 K/uL (0.1-1.0); MONOCYTES % (AUTO) 12.3 % (2.0-9.0); NEUTROPHILS # (AUTO) 3.4 K/uL (1.8-7.7); NEUTROPHILS % (AUTO) 51.6 % (40.0-70.0); PLATELET COUNT (AUTO) 275 K/uL (150-450); RED CELL DISTRIBUTION WIDTH 12.7 % (11.5-14.5); WHITE BLOOD COUNT (AUTO) 6.6 K/uL (4.5-11.0)
== END | disposition home or self-care (01) ==
LOC: LABMN 11:35
PROVIDERS: ATTEND Psychiatry & Neurology Psychiatry
DX: F20.9 Schizophrenia, unspecified (principal)
CPT/HCPCS: 85025

== ENCOUNTER → 2023-05-18 | Outpatient (CLI) | payer MEDICARE, MEDICAID ==
[2023-05-18 15:18] LABS: BASOPHILS % (AUTO) 0.5 % (0.0-2.0); HEMOGLOBIN 14.7 g/dL (13.5-17.5); LYMPHOCYTES # (AUTO) 1.7 K/uL (1.0-4.8); LYMPHOCYTES % (AUTO) 25.3 % (22.0-44.0); MEAN CORPUSCULAR HEMOGLOBIN 32.4 pg (26.0-34.0); MEAN CORPUSCULAR HGB CONC 34.3 G/dL (31.0-37.0); MEAN CORPUSCULAR VOLUME 95 fL (80-100); MONOCYTES # (AUTO) 0.7 K/uL (0.1-1.0); MONOCYTES % (AUTO) 10.5 % (2.0-9.0); NEUTROPHILS % (AUTO) 60.7 % (40.0-70.0); PLATELET COUNT (AUTO) 295 K/uL (150-450); RED BLOOD CELL COUNT(AUTO) 4.54 MIL/uL (4.50-5.90); RED CELL DISTRIBUTION WIDTH 12.4 % (11.5-14.5); WHITE BLOOD COUNT (AUTO) 6.7 K/uL (4.5-11.0)
== END | disposition home or self-care (01) ==
LOC: LABMN 10:40
PROVIDERS: ATTEND Psychiatry & Neurology Psychiatry
DX: F20.9 Schizophrenia, unspecified (principal)
CPT/HCPCS: 85025

== ENCOUNTER → 2023-05-24 | Outpatient (CLI) | payer MEDICARE, MEDICAID ==
[2023-05-24 15:06] LABS: BASOPHILS % (AUTO) 0.6 % (0.0-2.0); EOSINOPHILS % (AUTO) 1.7 % (1.0-6.0); HEMATOCRIT 40.7 % (41-53); HEMOGLOBIN 14.3 g/dL (13.5-17.5); LYMPHOCYTES # (AUTO) 1.6 K/uL (1.0-4.8); LYMPHOCYTES % (AUTO) 21.3 % (22.0-44.0); MEAN CORPUSCULAR HEMOGLOBIN 32.7 pg (26.0-34.0); MEAN CORPUSCULAR HGB CONC 35.2 G/dL (31.0-37.0); MEAN CORPUSCULAR VOLUME 93 fL (80-100); MONOCYTES # (AUTO) 0.9 K/uL (0.1-1.0); NEUTROPHILS # (AUTO) 4.6 K/uL (1.8-7.7); NEUTROPHILS % (AUTO) 63.4 % (40.0-70.0); PLATELET COUNT (AUTO) 312 K/uL (150-450); RED BLOOD CELL COUNT(AUTO) 4.38 MIL/uL (4.50-5.90); RED CELL DISTRIBUTION WIDTH 12.7 % (11.5-14.5); WHITE BLOOD COUNT (AUTO) 7.3 K/uL (4.5-11.0)
== END | disposition home or self-care (01) ==
LOC: LABMN 10:35
PROVIDERS: ATTEND Psychiatry & Neurology Psychiatry
DX: F20.9 Schizophrenia, unspecified (principal)
CPT/HCPCS: 85025

== ENCOUNTER → 2023-05-31 | Outpatient (CLI) | payer MEDICARE, MEDICAID ==
[2023-05-31 15:21] LABS: BASOPHILS % (AUTO) 1.2 % (0.0-2.0); EOSINOPHILS % (AUTO) 6.6 % (1.0-6.0); HEMATOCRIT 41.1 % (41-53); HEMOGLOBIN 14.3 g/dL (13.5-17.5); LYMPHOCYTES # (AUTO) 2.1 K/uL (1.0-4.8); LYMPHOCYTES % (AUTO) 33.6 % (22.0-44.0); MEAN CORPUSCULAR HEMOGLOBIN 32.6 pg (26.0-34.0); MEAN CORPUSCULAR HGB CONC 34.7 G/dL (31.0-37.0); MEAN CORPUSCULAR VOLUME 94 fL (80-100); MONOCYTES # (AUTO) 0.7 K/uL (0.1-1.0); MONOCYTES % (AUTO) 10.5 % (2.0-9.0); NEUTROPHILS % (AUTO) 48.1 % (40.0-70.0); PLATELET COUNT (AUTO) 321 K/uL (150-450); RED BLOOD CELL COUNT(AUTO) 4.37 MIL/uL (4.50-5.90); RED CELL DISTRIBUTION WIDTH 12.5 % (11.5-14.5); WHITE BLOOD COUNT (AUTO) 6.3 K/uL (4.5-11.0)
== END | disposition home or self-care (01) ==
LOC: LABMN 14:48
PROVIDERS: ATTEND Psychiatry & Neurology Psychiatry
DX: F20.9 Schizophrenia, unspecified (principal)
CPT/HCPCS: 85025

== ENCOUNTER → 2023-06-28 | Outpatient (CLI) | payer MEDICARE, MEDICAID ==
[~2023-06-28] MED LIST changes: +CLOZ25TA52 PO; +DIVA-112 PO; -DIVA500T69 PO; +NALT50TA33 PO; -OMEG-135 PO
[2023-06-28 15:36] LABS: BASOPHILS % (AUTO) 0.5 % (0.0-2.0); EOSINOPHILS % (AUTO) 4.9 % (1.0-6.0); HEMATOCRIT 41.6 % (41-53); HEMOGLOBIN 14.1 g/dL (13.5-17.5); LYMPHOCYTES # (AUTO) 1.6 K/uL (1.0-4.8); LYMPHOCYTES % (AUTO) 27.1 % (22.0-44.0); MEAN CORPUSCULAR HEMOGLOBIN 32.4 pg (26.0-34.0); MEAN CORPUSCULAR HGB CONC 33.9 G/dL (31.0-37.0); MEAN CORPUSCULAR VOLUME 96 fL (80-100); MONOCYTES # (AUTO) 0.6 K/uL (0.1-1.0); MONOCYTES % (AUTO) 9.3 % (2.0-9.0); NEUTROPHILS # (AUTO) 3.5 K/uL (1.8-7.7); NEUTROPHILS % (AUTO) 58.2 % (40.0-70.0); PLATELET COUNT (AUTO) 247 K/uL (150-450); RED BLOOD CELL COUNT(AUTO) 4.36 MIL/uL (4.50-5.90); RED CELL DISTRIBUTION WIDTH 13.1 % (11.5-14.5); WHITE BLOOD COUNT (AUTO) 5.9 K/uL (4.5-11.0)
== END | disposition home or self-care (01) ==
LOC: LABMN 11:30
PROVIDERS: ATTEND Psychiatry & Neurology Psychiatry
DX: F20.9 Schizophrenia, unspecified (principal)
CPT/HCPCS: 85025

== ENCOUNTER → 2023-07-05 | Outpatient (CLI) | payer MEDICARE, MEDICAID ==
[2023-07-05 15:56] LABS: BASOPHILS % (AUTO) 0.7 % (0.0-2.0); EOSINOPHILS % (AUTO) 4.2 % (1.0-6.0); HEMATOCRIT 43.3 % (41-53); HEMOGLOBIN 14.7 g/dL (13.5-17.5); LYMPHOCYTES # (AUTO) 2.3 K/uL (1.0-4.8); LYMPHOCYTES % (AUTO) 25.2 % (22.0-44.0); MEAN CORPUSCULAR HEMOGLOBIN 32.3 pg (26.0-34.0); MEAN CORPUSCULAR VOLUME 95 fL (80-100); MONOCYTES % (AUTO) 11.2 % (2.0-9.0); NEUTROPHILS # (AUTO) 5.3 K/uL (1.8-7.7); NEUTROPHILS % (AUTO) 58.7 % (40.0-70.0); PLATELET COUNT (AUTO) 320 K/uL (150-450); RED BLOOD CELL COUNT(AUTO) 4.55 MIL/uL (4.50-5.90); RED CELL DISTRIBUTION WIDTH 13.1 % (11.5-14.5)
== END | disposition home or self-care (01) ==
LOC: LABMN 11:35
PROVIDERS: ATTEND Psychiatry & Neurology Psychiatry
DX: F20.9 Schizophrenia, unspecified (principal)
CPT/HCPCS: 85025

== ENCOUNTER → 2023-07-12 | Outpatient (CLI) | payer MEDICARE, MEDICAID ==
[2023-07-12 14:57] LABS: BASOPHILS % (AUTO) 0.6 % (0.0-2.0); HEMATOCRIT 42.9 % (41-53); HEMOGLOBIN 14.6 g/dL (13.5-17.5); LYMPHOCYTES # (AUTO) 1.3 K/uL (1.0-4.8); LYMPHOCYTES % (AUTO) 19.8 % (22.0-44.0); MEAN CORPUSCULAR HEMOGLOBIN 32.3 pg (26.0-34.0); MEAN CORPUSCULAR VOLUME 95 fL (80-100); MONOCYTES # (AUTO) 0.6 K/uL (0.1-1.0); MONOCYTES % (AUTO) 9.1 % (2.0-9.0); NEUTROPHILS # (AUTO) 4.6 K/uL (1.8-7.7); NEUTROPHILS % (AUTO) 69.5 % (40.0-70.0); PLATELET COUNT (AUTO) 319 K/uL (150-450); RED BLOOD CELL COUNT(AUTO) 4.52 MIL/uL (4.50-5.90); RED CELL DISTRIBUTION WIDTH 13.2 % (11.5-14.5); WHITE BLOOD COUNT (AUTO) 6.7 K/uL (4.5-11.0)
== END | disposition home or self-care (01) ==
LOC: LABMN 09:25
PROVIDERS: ATTEND Psychiatry & Neurology Psychiatry
DX: F20.9 Schizophrenia, unspecified (principal)
CPT/HCPCS: 85025

== ENCOUNTER → 2023-07-19 | Outpatient (CLI) | payer MEDICARE, MEDICAID ==
[2023-07-19 14:25] LABS: BASOPHILS % (AUTO) 0.5 % (0.0-2.0); EOSINOPHILS % (AUTO) 5.1 % (1.0-6.0); HEMATOCRIT 41.2 % (41-53); HEMOGLOBIN 14.2 g/dL (13.5-17.5); LYMPHOCYTES # (AUTO) 1.7 K/uL (1.0-4.8); LYMPHOCYTES % (AUTO) 30.1 % (22.0-44.0); MEAN CORPUSCULAR HEMOGLOBIN 32.7 pg (26.0-34.0); MEAN CORPUSCULAR HGB CONC 34.6 G/dL (31.0-37.0); MEAN CORPUSCULAR VOLUME 95 fL (80-100); MONOCYTES # (AUTO) 0.5 K/uL (0.1-1.0); MONOCYTES % (AUTO) 8.8 % (2.0-9.0); NEUTROPHILS # (AUTO) 3.2 K/uL (1.8-7.7); NEUTROPHILS % (AUTO) 55.5 % (40.0-70.0); PLATELET COUNT (AUTO) 280 K/uL (150-450); RED BLOOD CELL COUNT(AUTO) 4.36 MIL/uL (4.50-5.90); WHITE BLOOD COUNT (AUTO) 5.8 K/uL (4.5-11.0)
[2023-07-19 15:05] LABS: LITHIUM 0.8 mmol/L (0.60-1.20)
== END | disposition home or self-care (01) ==
LOC: LABMN 12:47
PROVIDERS: ATTEND Psychiatry & Neurology Psychiatry
DX: F20.9 Schizophrenia, unspecified (principal)
CPT/HCPCS: 80164; 80178; 85025

== ENCOUNTER 2023-07-23 11:57 | Emergency (ER) | payer MEDICARE, OTHER ==
[~2023-07-23] VITALS: Ht 170.2 cm; Wt 63.6 kg
[2023-07-23 12:03] VITALS: BP 118/67; PULSE 115; RESP 18; TEMP 98
[2023-07-23 12:25] LABS: BASOPHILS % (AUTO) 0.3 % (0.0-2.0); EOSINOPHILS % (AUTO) 1.4 % (1.0-6.0); HEMOGLOBIN 14.5 g/dL (13.5-17.5); LYMPHOCYTES # (AUTO) 1.4 K/uL (1.0-4.8); LYMPHOCYTES % (AUTO) 12.1 % (22.0-44.0); MEAN CORPUSCULAR HEMOGLOBIN 32.7 pg (26.0-34.0); MEAN CORPUSCULAR HGB CONC 34.6 G/dL (31.0-37.0); MEAN CORPUSCULAR VOLUME 94 fL (80-100); MONOCYTES # (AUTO) 1.5 K/uL (0.1-1.0); MONOCYTES % (AUTO) 12.6 % (2.0-9.0); NEUTROPHILS # (AUTO) 8.8 K/uL (1.8-7.7); NEUTROPHILS % (AUTO) 73.6 % (40.0-70.0); PLATELET COUNT (AUTO) 318 K/uL (150-450); RED BLOOD CELL COUNT(AUTO) 4.45 MIL/uL (4.50-5.90); RED CELL DISTRIBUTION WIDTH 12.7 % (11.5-14.5); WHITE BLOOD COUNT (AUTO) 11.9 K/uL (4.5-11.0)
[2023-07-23 12:37] LABS: ANION GAP 8 mmol/L (8-16); CALCIUM, TOTAL 9.8 mg/dL (8.8-10.5); CARBON DIOXIDE 28 mmol/L (22-29); CHLORIDE 101 mmol/L (98-107); CREATININE 0.94 mg/dL (0.60-1.30); GLOMERULAR FILTR. RATE CALC > 60 mL/min (>60); GLUCOSE,RANDOM 100 mg/dL (70-110); SODIUM SERUM 137 mmol/L (136-145); UREA NITROGEN, BLOOD 3 mg/dL (7-18)
[2023-07-23 12:39] LABS: ALCOHOL, BLOOD (SERUM) < 3 mg/dL (0-10)
[2023-07-23 12:43] LABS: ALANINE AMINOTRANSFERASE 17 U/L (12-78); ALBUMIN 3.3 g/dL (3.4-5.0); ALKALINE PHOSPHATASE 89 U/L (46-116); ASPARTATE AMINOTRANSFERASE 12 U/L (15-37); BILIRUBIN,TOTAL 0.5 mg/dL (0.1-1.0); TOTAL PROTEIN, SERUM 8.2 g/dL (6.4-8.2)
== END 2023-07-23 13:29 | disposition left against medical advice (07) ==
LOC: EMS 11:57
DX: R44.0 Auditory hallucinations (principal); Z53.21 Procedure and treatment not carried out due to patient leaving prior to being seen by health care provider
CPT/HCPCS: 99281; 80053; 85025; 36415; G0480

== ENCOUNTER → 2023-07-28 | Outpatient (CLI) | payer MEDICARE, OTHER ==
[2023-07-28 14:49] LABS: BASOPHILS % (AUTO) 0.5 % (0.0-2.0); EOSINOPHILS % (AUTO) 8.3 % (1.0-6.0); HEMATOCRIT 41.2 % (41-53); HEMOGLOBIN 13.9 g/dL (13.5-17.5); LYMPHOCYTES # (AUTO) 1.5 K/uL (1.0-4.8); LYMPHOCYTES % (AUTO) 28.8 % (22.0-44.0); MEAN CORPUSCULAR HEMOGLOBIN 31.8 pg (26.0-34.0); MEAN CORPUSCULAR HGB CONC 33.6 G/dL (31.0-37.0); MEAN CORPUSCULAR VOLUME 95 fL (80-100); MONOCYTES # (AUTO) 0.6 K/uL (0.1-1.0); MONOCYTES % (AUTO) 11.5 % (2.0-9.0); NEUTROPHILS # (AUTO) 2.7 K/uL (1.8-7.7); NEUTROPHILS % (AUTO) 50.9 % (40.0-70.0); PLATELET COUNT (AUTO) 404 K/uL (150-450); RED BLOOD CELL COUNT(AUTO) 4.35 MIL/uL (4.50-5.90); RED CELL DISTRIBUTION WIDTH 12.6 % (11.5-14.5); WHITE BLOOD COUNT (AUTO) 5.4 K/uL (4.5-11.0)
== END | disposition home or self-care (01) ==
LOC: LABMN 11:00
PROVIDERS: ATTEND Psychiatry & Neurology Psychiatry
DX: F20.9 Schizophrenia, unspecified (principal)
CPT/HCPCS: 85025

== ENCOUNTER → 2023-08-04 | Outpatient (CLI) | payer MEDICARE, OTHER ==
[2023-08-04 13:01] LABS: EOSINOPHILS % (AUTO) 3.5 % (1.0-6.0); HEMATOCRIT 41.8 % (41-53); HEMOGLOBIN 14.3 g/dL (13.5-17.5); LYMPHOCYTES # (AUTO) 1.5 K/uL (1.0-4.8); LYMPHOCYTES % (AUTO) 27.9 % (22.0-44.0); MEAN CORPUSCULAR HEMOGLOBIN 32.4 pg (26.0-34.0); MEAN CORPUSCULAR HGB CONC 34.1 G/dL (31.0-37.0); MEAN CORPUSCULAR VOLUME 95 fL (80-100); MONOCYTES # (AUTO) 0.5 K/uL (0.1-1.0); MONOCYTES % (AUTO) 8.4 % (2.0-9.0); NEUTROPHILS # (AUTO) 3.3 K/uL (1.8-7.7); NEUTROPHILS % (AUTO) 59.2 % (40.0-70.0); PLATELET COUNT (AUTO) 382 K/uL (150-450); RED CELL DISTRIBUTION WIDTH 12.6 % (11.5-14.5); WHITE BLOOD COUNT (AUTO) 5.5 K/uL (4.5-11.0)
[2023-08-04 13:22] LABS: CHOL/HDL RATIO 3.1 (4.2-7.3)
== END | disposition home or self-care (01) ==
LOC: LABMN 09:40
PROVIDERS: ATTEND Psychiatry & Neurology Psychiatry
DX: F20.9 Schizophrenia, unspecified (principal); Z79.899 Other long term (current) drug therapy
CPT/HCPCS: 80061; 82947; 83036; 85025

== ENCOUNTER → 2023-08-11 | Outpatient (CLI) | payer MEDICARE, OTHER ==
[2023-08-11 15:23] LABS: BASOPHILS % (AUTO) 0.8 % (0.0-2.0); HEMATOCRIT 42.6 % (41-53); HEMOGLOBIN 14.5 g/dL (13.5-17.5); LYMPHOCYTES # (AUTO) 1.6 K/uL (1.0-4.8); LYMPHOCYTES % (AUTO) 31.2 % (22.0-44.0); MEAN CORPUSCULAR HEMOGLOBIN 32.6 pg (26.0-34.0); MEAN CORPUSCULAR VOLUME 96 fL (80-100); MONOCYTES # (AUTO) 0.5 K/uL (0.1-1.0); MONOCYTES % (AUTO) 9.7 % (2.0-9.0); NEUTROPHILS # (AUTO) 2.8 K/uL (1.8-7.7); NEUTROPHILS % (AUTO) 54.3 % (40.0-70.0); PLATELET COUNT (AUTO) 325 K/uL (150-450); RED BLOOD CELL COUNT(AUTO) 4.45 MIL/uL (4.50-5.90); RED CELL DISTRIBUTION WIDTH 13.2 % (11.5-14.5); WHITE BLOOD COUNT (AUTO) 5.1 K/uL (4.5-11.0)
[2023-08-18 10:49] LABS: BASOPHILS % (AUTO) 0.5 % (0.0-2.0); EOSINOPHILS % (AUTO) 6.1 % (1.0-6.0); HEMOGLOBIN 14.7 g/dL (13.5-17.5); MEAN CORPUSCULAR HEMOGLOBIN 32.1 pg (26.0-34.0); MEAN CORPUSCULAR HGB CONC 33.5 G/dL (31.0-37.0); MEAN CORPUSCULAR VOLUME 96 fL (80-100); MONOCYTES # (AUTO) 0.4 K/uL (0.1-1.0); MONOCYTES % (AUTO) 9.9 % (2.0-9.0); NEUTROPHILS # (AUTO) 1.7 K/uL (1.8-7.7); NEUTROPHILS % (AUTO) 38.5 % (40.0-70.0); PLATELET COUNT (AUTO) 246 K/uL (150-450); RED CELL DISTRIBUTION WIDTH 13.8 % (11.5-14.5); WHITE BLOOD COUNT (AUTO) 4.4 K/uL (4.5-11.0)
[2023-08-18 10:59] LABS: ALCOHOL, URINE DRUG SCREEN NEGATIVE (NEGATIVE); AMPHET/METH SCREEN,URINE NEGATIVE (NEGATIVE); BARBITURATE SCREEN, URINE NEGATIVE (NEGATIVE); BENZODIAZEPINES SCREEN,URINE NEGATIVE (NEGATIVE); CANNABINOID SCREEN,URINE NEGATIVE (NEGATIVE); COCAINE SCREEN,URINE NEGATIVE (NEGATIVE); METHADONE SCREEN, URINE NEGATIVE (NEGATIVE); OPIATE SCREEN,URINE NEGATIVE (NEGATIVE); PHENCYCLIDINE SCREEN,URINE NEGATIVE (NEGATIVE)
== END | disposition home or self-care (01) ==
LOC: LABMN 10:25
PROVIDERS: ATTEND Psychiatry & Neurology Psychiatry
DX: F20.9 Schizophrenia, unspecified (principal)
CPT/HCPCS: 80307; 85025

== ENCOUNTER → 2023-08-18 | Outpatient (CLI) | payer MEDICARE, MEDICAID ==
[2023-08-18 10:49] LABS: BASOPHILS % (AUTO) 0.5 % (0.0-2.0); EOSINOPHILS % (AUTO) 6.1 % (1.0-6.0); HEMOGLOBIN 14.7 g/dL (13.5-17.5); MEAN CORPUSCULAR HEMOGLOBIN 32.1 pg (26.0-34.0); MEAN CORPUSCULAR HGB CONC 33.5 G/dL (31.0-37.0); MEAN CORPUSCULAR VOLUME 96 fL (80-100); MONOCYTES # (AUTO) 0.4 K/uL (0.1-1.0); MONOCYTES % (AUTO) 9.9 % (2.0-9.0); NEUTROPHILS # (AUTO) 1.7 K/uL (1.8-7.7); NEUTROPHILS % (AUTO) 38.5 % (40.0-70.0); PLATELET COUNT (AUTO) 246 K/uL (150-450); RED CELL DISTRIBUTION WIDTH 13.8 % (11.5-14.5); WHITE BLOOD COUNT (AUTO) 4.4 K/uL (4.5-11.0)
[2023-08-18 10:59] LABS: ALCOHOL, URINE DRUG SCREEN NEGATIVE (NEGATIVE); AMPHET/METH SCREEN,URINE NEGATIVE (NEGATIVE); BARBITURATE SCREEN, URINE NEGATIVE (NEGATIVE); BENZODIAZEPINES SCREEN,URINE NEGATIVE (NEGATIVE); CANNABINOID SCREEN,URINE NEGATIVE (NEGATIVE); COCAINE SCREEN,URINE NEGATIVE (NEGATIVE); METHADONE SCREEN, URINE NEGATIVE (NEGATIVE); OPIATE SCREEN,URINE NEGATIVE (NEGATIVE); PHENCYCLIDINE SCREEN,URINE NEGATIVE (NEGATIVE)
== END | disposition home or self-care (01) ==
LOC: LABMN 11:01
PROVIDERS: ATTEND Psychiatry & Neurology Psychiatry
DX: F20.9 Schizophrenia, unspecified (principal); Z79.899 Other long term (current) drug therapy
CPT/HCPCS: 80307; 85025

== ENCOUNTER → 2023-08-25 | Outpatient (CLI) | payer MEDICARE, MEDICAID ==
[2023-08-25 11:10] LABS: BASOPHILS % (AUTO) 0.7 % (0.0-2.0); EOSINOPHILS % (AUTO) 6.1 % (1.0-6.0); HEMATOCRIT 43.6 % (41-53); HEMOGLOBIN 14.7 g/dL (13.5-17.5); LYMPHOCYTES # (AUTO) 1.8 K/uL (1.0-4.8); LYMPHOCYTES % (AUTO) 37.2 % (22.0-44.0); MEAN CORPUSCULAR HEMOGLOBIN 32.5 pg (26.0-34.0); MEAN CORPUSCULAR HGB CONC 33.8 G/dL (31.0-37.0); MEAN CORPUSCULAR VOLUME 96 fL (80-100); MONOCYTES # (AUTO) 0.5 K/uL (0.1-1.0); MONOCYTES % (AUTO) 10.1 % (2.0-9.0); NEUTROPHILS # (AUTO) 2.2 K/uL (1.8-7.7); NEUTROPHILS % (AUTO) 45.9 % (40.0-70.0); PLATELET COUNT (AUTO) 226 K/uL (150-450); RED BLOOD CELL COUNT(AUTO) 4.53 MIL/uL (4.50-5.90); RED CELL DISTRIBUTION WIDTH 13.2 % (11.5-14.5); WHITE BLOOD COUNT (AUTO) 4.8 K/uL (4.5-11.0)
== END | disposition home or self-care (01) ==
LOC: LABMN 14:06
PROVIDERS: ATTEND Psychiatry & Neurology Psychiatry
DX: F20.9 Schizophrenia, unspecified (principal)
CPT/HCPCS: 85025

== ENCOUNTER → 2023-09-01 | Outpatient (CLI) | payer MEDICARE, MEDICAID ==
[2023-09-01 12:10] LABS: BASOPHILS % (AUTO) 0.3 % (0.0-2.0); EOSINOPHILS % (AUTO) 3.2 % (1.0-6.0); HEMATOCRIT 43.6 % (41-53); HEMOGLOBIN 14.6 g/dL (13.5-17.5); LYMPHOCYTES # (AUTO) 1.8 K/uL (1.0-4.8); LYMPHOCYTES % (AUTO) 34.7 % (22.0-44.0); MEAN CORPUSCULAR HEMOGLOBIN 32.1 pg (26.0-34.0); MEAN CORPUSCULAR HGB CONC 33.6 G/dL (31.0-37.0); MEAN CORPUSCULAR VOLUME 96 fL (80-100); MONOCYTES # (AUTO) 0.5 K/uL (0.1-1.0); MONOCYTES % (AUTO) 10.3 % (2.0-9.0); NEUTROPHILS # (AUTO) 2.7 K/uL (1.8-7.7); NEUTROPHILS % (AUTO) 51.5 % (40.0-70.0); PLATELET COUNT (AUTO) 253 K/uL (150-450); RED BLOOD CELL COUNT(AUTO) 4.55 MIL/uL (4.50-5.90); RED CELL DISTRIBUTION WIDTH 12.8 % (11.5-14.5); WHITE BLOOD COUNT (AUTO) 5.2 K/uL (4.5-11.0)
== END | disposition home or self-care (01) ==
LOC: LABMN 09:56
PROVIDERS: ATTEND Psychiatry & Neurology Psychiatry
DX: F20.9 Schizophrenia, unspecified (principal)
CPT/HCPCS: 85025

== ENCOUNTER → 2023-09-08 | Outpatient (CLI) | payer MEDICARE, MEDICAID ==
[2023-09-08 11:14] LABS: BASOPHILS % (AUTO) 0.4 % (0.0-2.0); EOSINOPHILS % (AUTO) 2.6 % (1.0-6.0); HEMATOCRIT 43.8 % (41-53); HEMOGLOBIN 14.9 g/dL (13.5-17.5); LYMPHOCYTES # (AUTO) 2.1 K/uL (1.0-4.8); LYMPHOCYTES % (AUTO) 25.8 % (22.0-44.0); MEAN CORPUSCULAR HEMOGLOBIN 32.3 pg (26.0-34.0); MEAN CORPUSCULAR VOLUME 95 fL (80-100); MONOCYTES # (AUTO) 0.6 K/uL (0.1-1.0); MONOCYTES % (AUTO) 7.6 % (2.0-9.0); NEUTROPHILS # (AUTO) 5.2 K/uL (1.8-7.7); NEUTROPHILS % (AUTO) 63.6 % (40.0-70.0); PLATELET COUNT (AUTO) 264 K/uL (150-450); RED BLOOD CELL COUNT(AUTO) 4.61 MIL/uL (4.50-5.90); WHITE BLOOD COUNT (AUTO) 8.1 K/uL (4.5-11.0)
== END | disposition home or self-care (01) ==
LOC: LABMN 09:45
PROVIDERS: ATTEND Psychiatry & Neurology Psychiatry
DX: F20.9 Schizophrenia, unspecified (principal)
CPT/HCPCS: 85025

== ENCOUNTER → 2023-09-29 | Outpatient (CLI) | payer MEDICARE, MEDICAID ==
[~2023-09-29] MED LIST changes: -NALT50TA PO; +NALT50TA6 PO
[2023-09-29 15:38] LABS: BASOPHILS % (AUTO) 0.5 % (0.0-2.0); EOSINOPHILS % (AUTO) 3.3 % (1.0-6.0); HEMATOCRIT 41.8 % (41-53); HEMOGLOBIN 14.3 g/dL (13.5-17.5); LYMPHOCYTES # (AUTO) 1.3 K/uL (1.0-4.8); LYMPHOCYTES % (AUTO) 20.5 % (22.0-44.0); MEAN CORPUSCULAR HEMOGLOBIN 32.3 pg (26.0-34.0); MEAN CORPUSCULAR HGB CONC 34.2 G/dL (31.0-37.0); MEAN CORPUSCULAR VOLUME 94 fL (80-100); MONOCYTES # (AUTO) 0.6 K/uL (0.1-1.0); MONOCYTES % (AUTO) 8.6 % (2.0-9.0); NEUTROPHILS # (AUTO) 4.3 K/uL (1.8-7.7); NEUTROPHILS % (AUTO) 67.1 % (40.0-70.0); PLATELET COUNT (AUTO) 258 K/uL (150-450); RED BLOOD CELL COUNT(AUTO) 4.43 MIL/uL (4.50-5.90); RED CELL DISTRIBUTION WIDTH 12.8 % (11.5-14.5); WHITE BLOOD COUNT (AUTO) 6.4 K/uL (4.5-11.0)
== END | disposition home or self-care (01) ==
LOC: LABMN 09:20
PROVIDERS: ATTEND Psychiatry & Neurology Psychiatry
DX: F20.9 Schizophrenia, unspecified (principal)
CPT/HCPCS: 85025

== ENCOUNTER → 2023-10-13 | Outpatient (CLI) | payer MEDICARE, MEDICAID ==
[2023-10-13 15:23] LABS: BASOPHILS % (AUTO) 0.4 % (0.0-2.0); EOSINOPHILS % (AUTO) 1.5 % (1.0-6.0); HEMATOCRIT 41.7 % (41-53); HEMOGLOBIN 14.3 g/dL (13.5-17.5); LYMPHOCYTES # (AUTO) 1.9 K/uL (1.0-4.8); LYMPHOCYTES % (AUTO) 18.9 % (22.0-44.0); MEAN CORPUSCULAR HGB CONC 34.2 G/dL (31.0-37.0); MEAN CORPUSCULAR VOLUME 94 fL (80-100); MONOCYTES # (AUTO) 0.8 K/uL (0.1-1.0); MONOCYTES % (AUTO) 8.1 % (2.0-9.0); NEUTROPHILS # (AUTO) 7.2 K/uL (1.8-7.7); NEUTROPHILS % (AUTO) 71.1 % (40.0-70.0); PLATELET COUNT (AUTO) 345 K/uL (150-450); RED BLOOD CELL COUNT(AUTO) 4.46 MIL/uL (4.50-5.90); RED CELL DISTRIBUTION WIDTH 12.7 % (11.5-14.5); WHITE BLOOD COUNT (AUTO) 10.1 K/uL (4.5-11.0)
== END | disposition home or self-care (01) ==
LOC: LABMN 10:30
PROVIDERS: ATTEND Psychiatry & Neurology Psychiatry
DX: F20.9 Schizophrenia, unspecified (principal)
CPT/HCPCS: 85025

== ENCOUNTER 2024-02-05 15:02 | Inpatient (IN) | payer MEDICARE, MEDICAID ==
[~2024-02-05] VITALS: Ht 177.8 cm; Wt 67.8 kg
[~2024-02-05 15:02] MED LIST changes: -CLOZ25TA52 PO; -DIVA-112 PO; +DIVA500T69 PO; -NALT50TA6 PO; +OMEG-135 PO
[2024-02-05 16:20] LABS: BASOPHILS % (AUTO) 0.4 % (0.0-2.0); HEMATOCRIT 45.4 % (41-53); HEMOGLOBIN 15.5 g/dL (13.5-17.5); LYMPHOCYTES # (AUTO) 1.6 K/uL (1.0-4.8); LYMPHOCYTES % (AUTO) 25.6 % (22.0-44.0); MEAN CORPUSCULAR HEMOGLOBIN 30.9 pg (26.0-34.0); MEAN CORPUSCULAR HGB CONC 34.2 G/dL (31.0-37.0); MEAN CORPUSCULAR VOLUME 90 fL (80-100); MONOCYTES # (AUTO) 0.6 K/uL (0.1-1.0); MONOCYTES % (AUTO) 8.8 % (2.0-9.0); NEUTROPHILS # (AUTO) 3.9 K/uL (1.8-7.7); NEUTROPHILS % (AUTO) 63.2 % (40.0-70.0); PLATELET COUNT (AUTO) 355 K/uL (150-450); RED BLOOD CELL COUNT(AUTO) 5.03 MIL/uL (4.50-5.90); RED CELL DISTRIBUTION WIDTH 12.3 % (11.5-14.5); WHITE BLOOD COUNT (AUTO) 6.2 K/uL (4.5-11.0)
[2024-02-05 16:32] LABS: ANION GAP 8 mmol/L (8-16); CALCIUM, TOTAL 8.9 mg/dL (8.8-10.5); CARBON DIOXIDE 26 mmol/L (22-29); CHLORIDE 101 mmol/L (98-107); GLOMERULAR FILTR. RATE CALC > 60 mL/min (>60); GLUCOSE,RANDOM 102 mg/dL (70-110); POTASSIUM 4.4 mmol/L (3.5-5.1); SODIUM SERUM 135 mmol/L (136-145); UREA NITROGEN, BLOOD 6 mg/dL (7-18)
[2024-02-05 16:43] LABS: ALCOHOL, BLOOD (SERUM) < 3 mg/dL (0-10)
[2024-02-05 17:58] LABS: COVID AG,FIA SOURCE NASAL SWAB
[2024-02-05 18:10] LABS: ALCOHOL, URINE DRUG SCREEN NEGATIVE (NEGATIVE); AMPHET/METH SCREEN,URINE POSITIVE (NEGATIVE); BARBITURATE SCREEN, URINE NEGATIVE (NEGATIVE); BENZODIAZEPINES SCREEN,URINE NEGATIVE (NEGATIVE); CANNABINOID SCREEN,URINE NEGATIVE (NEGATIVE); COCAINE SCREEN,URINE NEGATIVE (NEGATIVE); METHADONE SCREEN, URINE NEGATIVE (NEGATIVE); OPIATE SCREEN,URINE NEGATIVE (NEGATIVE); PHENCYCLIDINE SCREEN,URINE NEGATIVE (NEGATIVE)
[2024-02-05 18:19] LABS: SARS-COV2 (COVID) ANTIGEN,FIA Negative (Negative)
[2024-02-05 18:21] VITALS: O2SAT 98
[2024-02-06] MEDS ORDERED: HALOPERIDOL 5 MG TABLET PO PRN
[2024-02-06] MEDS ORDERED: ZOLPIDEM TARTRATE 10 MG TABLET PO PRN
[2024-02-06] MEDS ORDERED: ALBUTEROL SULFATE HFA 90 MCG/PUFF 8 GM INHALER IH PRN (09:15)
[2024-02-06] MEDS ORDERED: OMEPRAZOLE 20 MG CAPSULE PO PRN (09:15)
[2024-02-06] MEDS ORDERED: LOPERAMIDE HCL 2 MG CAPSULE PO PRN (09:15)
[2024-02-06] MEDS ORDERED: IBUPROFEN 600 MG TABLET PO PRN (09:15)
[2024-02-06] MEDS ORDERED: ONDANSETRON 4 MG TABLET PO PRN (09:15)
[2024-02-06] MEDS ORDERED: MAGNESIUM HYDROXIDE SUSPENSION 30 ML UDCUP PO PRN (09:15)
[2024-02-06] MEDS ORDERED: PETROLATUM,WHITE 28 GM JELLY TP PRN (09:15)
[2024-02-06] MEDS ORDERED: DOCUSATE SODIUM 100 MG CAPSULE PO PRN (09:15)
[2024-02-06] MEDS ORDERED: BACITRACIN 28 GM OINTMENT TP PRN (09:15)
[2024-02-06] MEDS ORDERED: CloNIDine HCL 0.1 MG TABLET PO PRN (09:15)
[2024-02-06] MEDS ORDERED: BENZOCAINE/MENTHOL LOZENGE PO PRN (09:15)
[2024-02-06] MEDS ORDERED: MAG HYDROX/ALUMINUM HYD/SIMETH ES 30 ML SUSPENSION UDCUP PO PRN (09:15)
[2024-02-06 12:57] VITALS: BP 100/60; PULSE 82; RESP 17; TEMP 98; O2SAT 100
[2024-02-06 19:24] VITALS: BP 98/59; PULSE 68; RESP 17; TEMP 96.8; O2SAT 96
[2024-02-06 20:11] VITALS: BP 98/59; PULSE 68; RESP 17; TEMP 96.8; O2SAT 96
[2024-02-07 08:00] VITALS: BP 94/56; PULSE 65; RESP 18; TEMP 98.1; O2SAT 97
[2024-02-07] MEDS: ETHYL ALCOHOL 62% ANTISEPTIC NASAL SANITIZER 0.6 ML AMPUL NASAL SCH (09:01)
[2024-02-07] MEDS ORDERED: BENZ-247 PO (17:08)
[2024-02-07] MEDS ORDERED: HALO10TA21 PO (17:08)
[2024-02-07] MEDS ORDERED: HALOPERIDOL LACTATE 10 MG/5 ML SOLUTION UDCUP PO PRN (17:15)
[2024-02-07] MEDS: INFLUENZA VIRUS VACCINE TVS (6MO+) 2024-25/PF 45 MCG/0.5 ML SYRINGE IM. ONE (18:04)
[2024-02-07] MEDS: CHLORHEXIDINE GLUCONATE 2% TOWELETTE [2'S/6'S] TP SCH (21:03)
[2024-02-07 21:08] VITALS: BP 102/58; PULSE 80; RESP 18; TEMP 98.5; O2SAT 97
[2024-02-07] MEDS: AMOX TR/POT CLAV 250/62.5 MG/5 ML SUSPENSION ORAL.SYG PO SCH (22:23)
[2024-02-08] MEDS: ACETAMINOPHEN 325 MG TABLET PO PRN (07:31)
[2024-02-08 16:28] VITALS: BP 100/60; PULSE 72; RESP 18; TEMP 97.6; O2SAT 99
[2024-02-08 20:11] VITALS: BP 91/60; PULSE 77; RESP 18; TEMP 96.8; O2SAT 98
[2024-02-09 08:12] VITALS: BP 95/62; PULSE 97; RESP 16; TEMP 97.5
[2024-02-09] MEDS: CHLORHEXIDINE GLUCONATE 0.12% 15 ML UDCUP ORAL RINSE PO SCH (13:00)
[2024-02-09 20:37] VITALS: BP 95/60; PULSE 72; RESP 17; TEMP 97.7; O2SAT 97
[2024-02-10 13:41] VITALS: BP 100/58; PULSE 72; RESP 18; TEMP 98; O2SAT 97
[2024-02-10] MEDS: LORazepam 2 MG TABLET PO PRN (14:23)
[2024-02-10 20:59] VITALS: BP 97/64; PULSE 88; RESP 16; TEMP 96.8; O2SAT 96
[2024-02-11 08:07] VITALS: RESP 17
[2024-02-11 20:00] VITALS: RESP 18
[2024-02-11] MEDS: RisperiDONE MICROSPHERES 50 MG/2 ML SYRINGE IM ONE (21:31)
== END 2024-02-11 22:16 | disposition home or self-care (01) | DRG 885 ==
LOC: EMS 15:02 → B2X 02-06
PROVIDERS: ADMIT Psychiatry & Neurology Psychiatry; ATTEND Psychiatry & Neurology Psychiatry
DX: F20.9 Schizophrenia, unspecified (principal); F41.9 Anxiety disorder, unspecified; G47.00 Insomnia, unspecified; Z20.822 Contact with and (suspected) exposure to COVID-19; K59.00 Constipation, unspecified; F15.10 Other stimulant abuse, uncomplicated; Z87.891 Personal history of nicotine dependence
CPT/HCPCS: 80048; 80307; 85025; 87081; 99285; G0480; J2794

== ENCOUNTER 2024-06-23 13:40 | Inpatient (IN) | payer MEDICARE, MEDICAID ==
[~2024-06-23] VITALS: Ht 170.2 cm; Wt 63.0 kg
[2024-06-23] MEDS ORDERED: AMOX500T2 PO (15:11)
[2024-06-23] MEDS ORDERED: BENZ-247 PO (15:11)
[2024-06-23] MEDS ORDERED: HALO10TA21 PO ×2 (15:11)
[2024-06-23] MEDS ORDERED: HALOPERIDOL 5 MG TABLET PO PRN (15:15)
[2024-06-23 15:51] LABS: GLUCOMETER DEV NAME(LOC) POC.BV; POC SARS-COV2 AG, FIA NEGATIVE (NEGATIVE)
[2024-06-23 16:41] VITALS: BP 103/66; PULSE 86; RESP 17; TEMP 97; O2SAT 98
[2024-06-23 20:13] VITALS: BP 105/63; PULSE 85; RESP 16; TEMP 97.4; O2SAT 97
[2024-06-24 08:11] VITALS: BP 115/72; PULSE 94; RESP 17; TEMP 97.5; O2SAT 95
[2024-06-24 08:25] LABS: BASOPHILS % (AUTO) 0.4 % (0.0-2.0); EOSINOPHILS % (AUTO) 1.2 % (1.0-6.0); HEMATOCRIT 46.8 % (41-53); LYMPHOCYTES # (AUTO) 1.6 K/uL (1.0-4.8); LYMPHOCYTES % (AUTO) 28.1 % (22.0-44.0); MEAN CORPUSCULAR HEMOGLOBIN 31.8 pg (26.0-34.0); MEAN CORPUSCULAR HGB CONC 34.3 G/dL (31.0-37.0); MEAN CORPUSCULAR VOLUME 93 fL (80-100); MONOCYTES # (AUTO) 0.5 K/uL (0.1-1.0); MONOCYTES % (AUTO) 7.9 % (2.0-9.0); NEUTROPHILS # (AUTO) 3.6 K/uL (1.8-7.7); NEUTROPHILS % (AUTO) 62.4 % (40.0-70.0); PLATELET COUNT (AUTO) 306 K/uL (150-450); RED BLOOD CELL COUNT(AUTO) 5.04 MIL/uL (4.50-5.90); RED CELL DISTRIBUTION WIDTH 13.1 % (11.5-14.5); WHITE BLOOD COUNT (AUTO) 5.8 K/uL (4.5-11.0)
[2024-06-24 08:30] LABS: HEMOGLOBIN A1C 4.8 % (3.8-5.6)
[2024-06-24 08:38] LABS: ALANINE AMINOTRANSFERASE 42 U/L (12-78); ALBUMIN 3.3 g/dL (3.4-5.0); ALKALINE PHOSPHATASE 131 U/L (46-116); ANION GAP 5 mmol/L (8-16); ASPARTATE AMINOTRANSFERASE 27 U/L (15-37); BILIRUBIN,TOTAL 0.8 mg/dL (0.1-1.0); CALCIUM, TOTAL 8.8 mg/dL (8.8-10.5); CARBON DIOXIDE 30 mmol/L (22-29); CHLORIDE 106 mmol/L (98-107); CHOL/HDL RATIO 2.9 (4.2-7.3); CHOLESTEROL 129 mg/dL (131-200); CREATININE 0.88 mg/dL (0.60-1.30); GLOMERULAR FILTR. RATE CALC > 60 mL/min (>60); GLUCOSE,RANDOM 112 mg/dL (70-110); HDL CHOLESTEROL 45 mg/dL (40-60); LDL CHOL (CALC.) 68 mg/dL (0-130); SODIUM SERUM 141 mmol/L (136-145); TRIGLYCERIDES 81 mg/dL (15-150); UREA NITROGEN, BLOOD 10 mg/dL (7-18)
[2024-06-24] MEDS: LORazepam 2 MG TABLET PO PRN (08:48)
[2024-06-24] MEDS ORDERED: MAGNESIUM HYDROXIDE SUSPENSION 30 ML UDCUP PO PRN (10:45)
[2024-06-24] MEDS ORDERED: OMEPRAZOLE 20 MG CAPSULE PO PRN (10:45)
[2024-06-24] MEDS ORDERED: ONDANSETRON 4 MG TABLET PO PRN (10:45)
[2024-06-24] MEDS ORDERED: ACETAMINOPHEN 325 MG TABLET PO PRN (10:45)
[2024-06-24] MEDS ORDERED: LOPERAMIDE HCL 2 MG CAPSULE PO PRN (10:45)
[2024-06-24] MEDS ORDERED: PETROLATUM,WHITE 28 GM JELLY TP PRN (10:45)
[2024-06-24] MEDS ORDERED: IBUPROFEN 600 MG TABLET PO PRN (10:45)
[2024-06-24] MEDS ORDERED: ALBUTEROL SULFATE HFA 90 MCG/PUFF 8 GM INHALER IH PRN (10:45)
[2024-06-24] MEDS ORDERED: DOCUSATE SODIUM 100 MG CAPSULE PO PRN (10:45)
[2024-06-24] MEDS ORDERED: MAG HYDROX/ALUMINUM HYD/SIMETH ES 30 ML SUSPENSION UDCUP PO PRN (10:45)
[2024-06-24] MEDS ORDERED: BENZOCAINE/MENTHOL LOZENGE PO PRN (10:45)
[2024-06-24] MEDS ORDERED: CloNIDine HCL 0.1 MG TABLET PO PRN (10:45)
[2024-06-24] MEDS ORDERED: BACITRACIN 28 GM OINTMENT TP PRN (10:45)
[2024-06-24] MEDS: RisperiDONE MICROSPHERES 50 MG/2 ML SYRINGE IM SCH (16:14)
[2024-06-24 20:45] VITALS: BP 98/68; PULSE 90; RESP 18; TEMP 97.7; O2SAT 96
[2024-06-25 08:16] VITALS: BP 93/52; PULSE 94; RESP 19; TEMP 95.6; O2SAT 97
[2024-06-25 22:39] VITALS: BP 102/60; PULSE 89; RESP 18; TEMP 97.2; O2SAT 98
[2024-06-26 15:00] VITALS: BP 108/61; PULSE 84; RESP 18; TEMP 98; O2SAT 95
[2024-06-26 20:12] VITALS: BP 99/59; PULSE 83; RESP 18; TEMP 97.3; O2SAT 97
[2024-06-27 08:00] VITALS: RESP 16
[2024-06-27 20:19] VITALS: BP 100/60; PULSE 87; RESP 18; TEMP 98.3; O2SAT 97
[2024-06-28 08:24] VITALS: BP 100/60; PULSE 82; RESP 18; TEMP 97.5; O2SAT 97
[2024-06-28 09:56] LABS: APPEARANCE,URINE TURBID (CLEAR); BILIRUBIN,URINE NEGATIVE (NEGATIVE); COLOR,URINE YELLOW (YELLOW); GLUCOSE, URINE (UA) NEGATIVE (NEGATIVE); KETONES,URINE NEGATIVE (NEGATIVE); LEUKOCYTE ESTERASE ,URINE NEGATIVE (NEGATIVE); NITRATE,URINE NEGATIVE (NEGATIVE); OCCULT BLOOD,URINE NEGATIVE (NEGATIVE); PROTEIN,URINE TRACE mg/dL (NEGATIVE); SPECIFIC GRAVITIY, URINE 1.023 (1.003-1.030); UROBILINOGEN,URINE <=1.0 mg/dL (<=1.0)
[2024-06-28 10:06] LABS: ALCOHOL, URINE DRUG SCREEN NEGATIVE (NEGATIVE); AMPHET/METH SCREEN,URINE NEGATIVE (NEGATIVE); BARBITURATE SCREEN, URINE NEGATIVE (NEGATIVE); BENZODIAZEPINES SCREEN,URINE NEGATIVE (NEGATIVE); CANNABINOID SCREEN,URINE NEGATIVE (NEGATIVE); COCAINE SCREEN,URINE NEGATIVE (NEGATIVE); METHADONE SCREEN, URINE NEGATIVE (NEGATIVE); OPIATE SCREEN,URINE NEGATIVE (NEGATIVE); PHENCYCLIDINE SCREEN,URINE NEGATIVE (NEGATIVE)
[2024-06-28 20:09] VITALS: BP 101/62; PULSE 80; RESP 18; TEMP 98.1; O2SAT 97
[2024-06-29 08:20] VITALS: BP 101/62; PULSE 81; RESP 18; TEMP 98; O2SAT 97
[2024-06-29 20:00] VITALS: BP 108/68; PULSE 85; RESP 18; TEMP 96.9; O2SAT 97
[2024-06-30 09:22] VITALS: BP 99/65; PULSE 101; RESP 18; TEMP 96.1; O2SAT 96
[2024-06-30 20:33] VITALS: BP 108/73; PULSE 85; RESP 18; TEMP 96.8; O2SAT 86
[2024-06-30] MEDS: ZOLPIDEM TARTRATE 10 MG TABLET PO PRN (21:52)
[2024-07-01 08:21] VITALS: BP 96/57; PULSE 93; RESP 16; TEMP 97.6; O2SAT 98
[2024-07-01 08:55] VITALS: BP 95/64
[2024-07-01] MEDS: THIAMINE 100 MG TABLET PO SCH (09:37)
[2024-07-01] MEDS: MULTIVITAMINS WITH MINERALS, THERAPEUTIC TABLET PO SCH (09:37)
[2024-07-01] MEDS: FOLIC ACID/VIT B COMPLEX AND C TABLET PO SCH (09:40)
[2024-07-01 23:08] VITALS: BP 98/63; PULSE 74; RESP 16; TEMP 98.9; O2SAT 99
[2024-07-02 08:09] VITALS: BP 101/67; PULSE 96; RESP 16; TEMP 97.7; O2SAT 97
[2024-07-02 20:12] VITALS: BP 115/72; PULSE 90; RESP 18; TEMP 97.9
[2024-07-03 13:06] VITALS: BP 133/77; PULSE 107; RESP 18; TEMP 97.7; O2SAT 95
[2024-07-03] MEDS ORDERED: RISPC50 IM (13:17)
== END 2024-07-03 18:39 | disposition home or self-care (01) | DRG 885 ==
LOC: B2X 14:59
PROVIDERS: ADMIT Psychiatry & Neurology Psychiatry; ATTEND Psychiatry & Neurology Psychiatry
DX: F25.9 Schizoaffective disorder, unspecified (principal); F15.10 Other stimulant abuse, uncomplicated; F12.10 Cannabis abuse, uncomplicated; F41.9 Anxiety disorder, unspecified; G47.00 Insomnia, unspecified; K59.00 Constipation, unspecified; F10.90 Alcohol use, unspecified, uncomplicated; Z20.822 Contact with and (suspected) exposure to COVID-19
CPT/HCPCS: 80053; 80061; 80307; 81003; 83036; 85025; 86592; J2794